=== PATIENT | female | born 1930 | race Caucasian/White ===

== ENCOUNTER 2017-07-01 19:32 | Observation (INO) | payer MEDICARE, BC ==
[2017-07-01] MEDS ORDERED: Sodium Chloride 0.9% 10 ML Syringe FLUSH PRN (20:00)
[2017-07-01] MEDS: Labetalol 20 MG/4 ML Syringe IVPUSH ONE ×3 (20:30→21:44)
[2017-07-01 21:00] LABS: CHLORIDE,CL 97 mmol/L (98-107); SODIUM,NA 136 mmol/L (136-145)
[2017-07-01] MEDS: cloNIDine 0.1 MG Tab PO ONE (21:13)
[2017-07-01] MEDS: LORazepam 1 MG Tab PO ONE (21:13)
[2017-07-01] MEDS ORDERED: Doxepin 25 MG Cap PO PRN (21:43)
[2017-07-01] MEDS ORDERED: HYDROmorphone 2 MG Tab PO PRN (21:43)
[2017-07-01] MEDS ORDERED: Potassium Chloride 10 MEQ Tab.ER PO SCH (21:45)
--- NOTE | 2017-07-01 22:23 | EDM.PDOC ---
ED HPI GENERAL MEDICAL PROBLEM - General Chief Complaint: General Stated Complaint: Not feeling well, Increased BP Time Seen by Provider: 07/01/17 19:40 Source of Information: Reports: Patient History Limitations: Reports: No Limitations - History of Present Illness INITIAL COMMENTS - FREE TEXT/NARRATIVE: This note can be used as the pts. admission H and P. Pt. presents to ER with complaints of "not feeling well". Pt. has been extremely hypertensive with BP of >180/90 for several days. Pt. states that she is not experiencing any headache or chest pain. No shortness of breath. Appetite is poor. Pt. states that she has not recently changed or adjusted her antihypertensive medications. She had been started on gabapentin in Apr. for her chronic back pain but only took this for 3 days because if made her feel "funny". States that she is not experiencing any shortness of breath. No weakness. No nausea or vomiting. In general, pt. is unable to relate what her complaint is other than "not feeling well". Location: Reports: Generalized Associated Symptoms: Reports: Malaise whole body Pain Score (Numeric/FACES): 5 - Related Data Allergies Allergy/AdvReac Type Severity Reaction Status Date / Time tetracycline [Tetracycline] Allergy Unknown Cannot Verified 07/01/17 20:00 Remember hydrocodone Allergy Rash Verified 07/01/17 20:00 Home Meds: Home Meds Aspirin [Halfprin] 81 mg PO DAILY 03/08/14 [History] Hydrochlorothiazide 12.5 mg PO DAILY 03/08/14 [History] Metoprolol Succinate [Toprol XL] 50 mg PO DAILY 03/08/14 [History] Potassium Chloride [Klor-Con 10] 10 meq PO QD #30 tab.er 03/19/14 [Rx] Doxepin [SINEquan] 25 mg PO Q6H PRN 07/01/17 [History] HYDROmorphone [Dilaudid] 2 mg PO BID PRN 07/01/17 [History] Levothyroxine Sodium [Synthroid] 25 mcg PO DAILY 07/01/17 [History] Naloxegol Oxalate [Movantik] 25 mg PO DAILY 07/01/17 [History] Sennosides/Docusate Sodium [Senna S Tablet] 1 tab PO DAILY 07/01/17 [History] Thyroid,Pork [[place] Thyroid] 30 mg PO DAILY 07/01/17 [History] busPIRone [Buspar] 5 mg PO BID 07/01/17 [History] traZODone HCl [Trazodone HCl] 12.5 mg PO BEDTIME 07/01/17 [History] Past Medical History HEENT History: Reports: Hard of Hearing, Impaired Vision Cardiovascular History: Reports: Hypertension, Stents, Other (See Below) Other Cardiovascular History: Stents placed "years ago" Gastrointestinal History: Reports: GERD Musculoskeletal History: Reports: Back Pain, Chronic Psychiatric History: Reports: Anxiety, Other (See Below) Other Psychiatric History: Insomnia Dermatologic History: Reports: Other (See Below) Other Dermatologic History: Various rashes on arms, upper chest (possibly from pain pills or stress). Possible yeast under breasts and near belly button ( using lotrimin cream for this) Social & Family History - Tobacco Use Smoking Status *Q: Never Smoker Years of Tobacco use: 60 - Caffeine Use Caffeine Use: Reports: Coffee - Alcohol Use Days Per Week of Alcohol Use: 0 - Recreational Drug Use Recreational Drug Use: No ED ROS GENERAL - Review of Systems Review Of Systems: See Below Constitutional: Reports: No Symptoms HEENT: Reports: No Symptoms Respiratory: Reports: No Symptoms. Denies: Shortness of Breath, Wheezing, Cough Cardiovascular: Reports: Blood Pressure Problem. Denies: Chest Pain, Dyspnea on Exertion, Edema, Lightheadedness, Palpitations Endocrine: Reports: No Symptoms GI/Abdominal: Reports: Decreased Appetite, Nausea. Denies: Black Stool, Bloody Stool, Constipation, Diarrhea, Difficulty Swallowing, Distension, Vomiting : Reports: No Symptoms, Dysuria, Frequency Musculoskeletal: Reports: No Symptoms Skin: Reports: No Symptoms Neurological: Denies: Confusion, Dizziness, Headache, Paresthesia Psychiatric: Reports: Anxiety Hematologic/Lymphatic: Reports: No Symptoms Immunologic: Reports: No Symptoms ED EXAM, GENERAL - Physical Exam Exam: See Below Exam Limited By: No Limitations General Appearance: Alert, WD/WN, No Apparent Distress Eye Exam: Bilateral Eye: EOMI, Normal Fundi, Normal Inspection, PERRL Ears: Normal External Exam, Normal Canal, Hearing Grossly Normal, Normal TMs Ear Exam: Bilateral Ear: Auricle Normal, Canal Normal, TM normal Nose: Normal Inspection, Normal Mucosa, No Blood Throat/Mouth: Normal Inspection, Normal Lips, Normal Teeth, Normal Gums, Normal Oropharynx, Normal Voice, No Airway Compromise Head: Atraumatic, Normocephalic Neck: Normal Inspection, Supple, Non-Tender, Full Range of Motion Respiratory/Chest: No Respiratory Distress, Lungs Clear, Normal Breath Sounds, No Accessory Muscle Use, Chest Non-Tender Cardiovascular: Systolic Murmur, Irregularly Irregular Peripheral Pulses: 3+: Radial (L), Radial (R) GI/Abdominal: Normal Bowel Sounds, Soft, Non-Tender, No Organomegaly, No Distention, No Abnormal Bruit, No Mass (Female) Exam: Deferred Rectal (Female) Exam: Deferred Back Exam: Normal Inspection, Full Range of Motion, NT Extremities: Normal Inspection, Normal Range of Motion, Non-Tender, Normal Capillary Refill, No Pedal Edema Neurological: Alert, Oriented, CN II-XII Intact, Normal Cognition, Normal Gait, Normal Reflexes, No Motor/Sensory Deficits Psychiatric: Normal Affect, Normal Mood Skin Exam: Warm, Dry, Intact, Normal Color, No Rash Lymphatic: No Adenopathy Course - Vital Signs Last Recorded V/S: Last Vital Signs Temp 36.4 C 07/01/17 19:35 Pulse 72 07/01/17 21:07 Resp 16 07/01/17 21:07 BP 217/114 H 07/01/17 21:13 Pulse Ox 95 07/01/17 19:35 - Orders/Labs/Meds Orders: Active Orders 24 hr Category Date Time Status EKG Documentation Completion [RC] STAT Care 07/01/17 20:00 Active Chest 2V [CR] Stat Exams 07/01/17 20:02 Taken Sodium Chloride 0.9% [Saline Flush] Med 07/01/17 20:00 Active 10 ml FLUSH ASDIRECTED PRN Peripheral IV Insertion Adult [OM.PC] Routine Oth 07/01/17 20:01 Ordered Medication Orders Aspirin (Halfprin) 81 mg PO DAILY [facility] Doxepin HCl (Sinequan) 25 mg PO Q6H PRN PRN Reason: Itching Hydrochlorothiazide (Hydrochlorothiazide) 12.5 mg PO DAILY [facility] Hydromorphone HCl (Dilaudid) 2 mg PO BID PRN PRN Reason: Pain (moderate 4-6) Levothyroxine Sodium (Levothyroxine) 25 mcg PO DAILY [facility] Metoprolol Succinate (Toprol Xl) 50 mg PO DAILY [facility] Non-Formulary Medication (Buspirone [Buspar]) 5 mg PO BID [facility] Non-Formulary Medication (Naloxegol Oxalate [Movantik]) 25 mg PO DAILY [facility] Non-Formulary Medication (Thyroid,Pork [[place] Thyroid]) 30 mg PO DAILY [facility] Potassium Chloride (Klor-Con 10) 10 meq PO QD [facility] Senna/Docusate Sodium (Senna Plus) 1 tab PO DAILY [facility] Sodium Chloride (Saline Flush) 10 ml FLUSH ASDIRECTED PRN PRN Reason: Keep Vein Open Trazodone HCl (Trazodone) 12.5 mg PO BEDTIME [facility] Labs: Laboratory Tests 07/01/17 07/01/17 07/01/17 Range/Units 20:25 20:25 20:25 WBC 7.2 (4.0-10.0) x10^3/uL RBC 5.02 (4.00-5.50) x10^6/uL Hgb 15.1 (12.0-16.0) g/dL Hct 45.9 (33.0-47.0) % MCV 91.4 (78.0-93.0) fL MCH 30.1 (26.0-32.0) pg MCHC 32.9 (32.0-36.0) g/dL RDW Coeff of [place] 14.0 (10.0-15.0) % Plt Count 181 (130-400) x10^3/uL Neut % (Auto) 58.0 (50.0-80.0) % Lymph % (Auto) 29.6 (25.0-50.0) % [place] % (Auto) 10.3 (2.0-11.0) % Eos % (Auto) 1.5 (0.0-4.0) % Baso % (Auto) 0.6 (0.2-1.2) % PT 10.5 (9.8-11.8) SEC INR 1.0 L (2.0-3.5) Sodium 136 (136-145) mmol/L Potassium 4.0 (3.5-5.1) mmol/L Chloride 97 L (98-107) mmol/L Carbon Dioxide 30 (21-32) mmol/L BUN 15 (7-18) mg/dL Creatinine 1.3 H (0.55-1.02) mg/dL Est Cr Clr Drug Dosing 31.26 mL/min Estimated GFR (MDRD) 39 Glucose 98 (74-106) mg/dL Calcium 9.3 (8.5-10.1) mg/dL Corrected Calcium 9.38 (8.5-10.1) mg/dL Total Bilirubin 0.7 (0.2-1.0) mg/dL AST 22 (15-37) U/L ALT 19 (14-59) U/L Alkaline Phosphatase 83 (46-116) U/L Troponin I < 0.017 (<=0.056) ng/mL C-Reactive Protein < 0.2 (<=0.9) mg/dL Total Protein 7.3 (6.4-8.2) g/dL Albumin 3.9 (3.4-5.0) g/dL Globulin 3.4 Albumin/Globulin Ratio 1.15 TSH, Ultra Sensitive 5.902 H (0.358-3.74) uIU/mL Meds: Medications Generic Name Dose Route Start Last Admin Trade Name Freq PRN Reason Stop Dose Admin Aspirin 81 mg 07/02/17 08:00 Halfprin PO DAILY [facility] Doxepin HCl 25 mg 07/01/17 21:43 Sinequan PO Q6H PRN Itching Hydrochlorothiazide 12.5 mg 07/02/17 08:00 Hydrochlorothiazide PO DAILY [facility] Hydromorphone HCl 2 mg 07/01/17 21:43 Dilaudid PO BID PRN Pain (moderate 4-6) Levothyroxine Sodium 25 mcg 07/02/17 08:00 Levothyroxine PO DAILY [facility] Metoprolol Succinate 50 mg 07/02/17 08:00 Toprol Xl PO DAILY [facility] Non-Formulary Medication 5 mg 07/02/17 08:00 Buspirone [Buspar] PO BID [facility] Non-Formulary Medication 25 mg 07/02/17 08:00 Naloxegol Oxalate [Movantik] PO DAILY [facility] Non-Formulary Medication 30 mg 07/02/17 08:00 Thyroid,Pork [[place] Thyroid] PO DAILY [facility] Potassium Chloride 10 meq 07/01/17 21:45 Klor-Con 10 PO QD [facility] Senna/Docusate Sodium 1 tab 07/02/17 08:00 Senna Plus PO DAILY [facility] Sodium Chloride 10 ml 07/01/17 20:00 Saline Flush FLUSH ASDIRECTED PRN Keep Vein Open Trazodone HCl 12.5 mg 07/02/17 20:00 Trazodone PO BEDTIME [facility] Discontinued Medications Generic Name Dose Route Start Last Admin Trade Name Lindy PRN Reason Stop Dose Admin Clonidine HCl 0.3 mg 07/01/17 21:03 07/01/17 21:13 Catapres PO 07/01/17 21:04 0.3 mg ONETIME ONE Administration Labetalol HCl 20 mg 07/01/17 20:07 07/01/17 21:44 Normodyne IVPUSH 07/01/17 20:08 Not Given NOW ONE Protocol Labetalol HCl 10 mg 07/01/17 20:08 07/01/17 20:30 Normodyne IVPUSH 07/01/17 20:09 10 mg NOW ONE Administration Protocol Labetalol HCl 10 mg 07/01/17 21:14 07/01/17 21:05 Normodyne IVPUSH 07/01/17 21:15 10 mg NOW ONE Administration Protocol Lorazepam 1 mg 07/01/17 21:02 07/01/17 21:13 Ativan PO 07/01/17 21:03 1 mg ONETIME ONE Administration Departure - Departure Time of Disposition: 22:00 Disposition: Refer to Observation Clinical Impression: Hypertensive crisis - Discharge Information - My Orders Last 24 Hours: My Active Orders 07/01/17 20:00 EKG Documentation Completion [RC] STAT Sodium Chloride 0.9% [Saline Flush] 10 ml FLUSH ASDIRECTED PRN 07/01/17 20:01 Peripheral IV Insertion Adult [OM.PC] Routine 07/01/17 20:02 Chest 2V [CR] Stat - Assessment/Plan Last 24 Hours: My Active Orders 07/01/17 20:00 EKG Documentation Completion [RC] STAT Sodium Chloride 0.9% [Saline Flush] 10 ml FLUSH ASDIRECTED PRN 07/01/17 20:01 Peripheral IV Insertion Adult [OM.PC] Routine 07/01/17 20:02 Chest 2V [CR] Stat
[2017-07-01] MEDS: hydrALAZINE 10 MG Tab PO SCH (23:17)
[2017-07-02] MEDS: Sodium Chloride 0.9% 1,000 ML IV ONE (02:29)
[2017-07-02] MEDS ORDERED: THYROID PORK 30 MG PO SCH (08:00)
[2017-07-02] MEDS ORDERED: NALOXEGOL OXALATE 25 MG PO SCH (08:00)
[2017-07-02] MEDS: Hydrochlorothiazide 25 MG Tab PO SCH (08:24)
[2017-07-02] MEDS: Levothyroxine 25 MCG Tab PO SCH (08:24)
[2017-07-02] MEDS: busPIRone 5 MG Tab PO SCH (08:25)
[2017-07-02] MEDS: Aspirin 81 MG Tab.EC PO SCH (08:25)
[2017-07-02 08:26] VITALS: BP 117/66
[2017-07-02] MEDS: Metoprolol Succinate 50 MG Tab.ER PO SCH (08:26)
--- NOTE | 2017-07-02 08:51 | PCM.DCSUM1 ---
Discharge Summary - Hospital Course Free Text/Narrative:: Pt. is feeling better this AM. Her blood pressure was elevated at >200/100 despite receiving IV labetolol. Pt. was subsequently given 0.3mg of clonidine and her BP decreased to normal range, at one point dropping to around 80/50. She was given a liter of NS. This morning, pt. blood pressure is in the normal range and she is feeling much better. Pt. started feeling better she was able to relax for the evening. At this time, she feels she is stable to go home. - Discharge Data Discharge Date: 07/02/17 Discharge Disposition: Home, Self-Care 01 Condition: Good - Discharge Diagnosis/Problem(s) (1) Anxiety SNOMED Code(s): 42537680 ICD Code: F41.9 - ANXIETY DISORDER, UNSPECIFIED Status: Acute Current Visit: Yes (2) Hypertensive crisis SNOMED Code(s): 673401392 ICD Code: I16.9 - HYPERTENSIVE CRISIS, UNSPECIFIED Status: Acute Current Visit: Yes - Patient Instructions Diet: Regular Diet as Tolerated - Discharge Plan Home Medications: Home Meds Aspirin [Halfprin] 81 mg PO DAILY 03/08/14 [History] Hydrochlorothiazide 12.5 mg PO DAILY 03/08/14 [History] Metoprolol Succinate [Toprol XL] 50 mg PO DAILY 03/08/14 [History] Potassium Chloride [Klor-Con 10] 10 meq PO QD #30 tab.er 03/19/14 [Rx] Doxepin [SINEquan] 25 mg PO Q6H PRN 07/01/17 [History] HYDROmorphone [Dilaudid] 2 mg PO BID PRN 07/01/17 [History] Levothyroxine Sodium [Synthroid] 25 mcg PO DAILY 07/01/17 [History] Naloxegol Oxalate [Movantik] 25 mg PO DAILY 07/01/17 [History] Sennosides/Docusate Sodium [Senna S Tablet] 1 tab PO DAILY 07/01/17 [History] Thyroid,Pork [[place] Thyroid] 30 mg PO DAILY 07/01/17 [History] busPIRone [Buspar] 5 mg PO BID 07/01/17 [History] traZODone HCl [Trazodone HCl] 12.5 mg PO BEDTIME 07/01/17 [History] Forms: ED Department Discharge Referrals: Loli Oliveros DO [Primary Care Provider] - - Patient Data Vitals - Most Recent: Last Vital Signs Temp 37.1 C 07/02/17 08:00 Pulse 70 07/02/17 08:26 Resp 18 07/02/17 08:00 BP 117/66 07/02/17 08:26 Pulse Ox 97 07/02/17 08:00 Weight - Most Recent: 73.482 kg I&O - Last 24 hours: Intake & Output 07/01/17 07/02/17 07/02/17 22:59 06:59 14:59 Intake Total 240 1100 Output Total 200 250 Balance 40 850 Lab Results - Last 24 hrs: Laboratory Results - last 24 hr 07/02/17 Range/Units 06:25 Troponin I < 0.017 (<=0.056) ng/mL Med Orders - Current: Current Medications Aspirin (Halfprin) 81 mg PO DAILY [facility] Last Admin: 07/02/17 08:25 Dose: 81 mg Buspirone HCl (Buspar) 5 mg PO BID [facility] Last Admin: 07/02/17 08:25 Dose: 5 mg Doxepin HCl (Sinequan) 25 mg PO Q6H PRN PRN Reason: Itching Hydrochlorothiazide (Hydrochlorothiazide) 12.5 mg PO DAILY [facility] Last Admin: 07/02/17 08:24 Dose: 12.5 mg Hydromorphone HCl (Dilaudid) 2 mg PO BID PRN PRN Reason: Pain (moderate 4-6) Levothyroxine Sodium (Levothyroxine) 25 mcg PO DAILY [facility] Last Admin: 07/02/17 08:24 Dose: 25 mcg Metoprolol Succinate (Toprol Xl) 50 mg PO DAILY [facility] Last Admin: 07/02/17 08:26 Dose: 50 mg Non-Formulary Medication (Naloxegol Oxalate [Movantik]) 25 mg PO DAILY [facility] Non-Formulary Medication (Thyroid,Pork [[place] Thyroid]) 30 mg PO DAILY [facility] Potassium Chloride (Klor-Con 10) 10 meq PO QD [facility] Senna/Docusate Sodium (Senna Plus) 1 tab PO DAILY [facility] Last Admin: 07/02/17 08:26 Dose: 1 tab Sodium Chloride (Saline Flush) 10 ml FLUSH ASDIRECTED PRN PRN Reason: Keep Vein Open Trazodone HCl (Trazodone) 12.5 mg PO BEDTIME [facility] Discontinued Medications Clonidine HCl (Catapres) 0.3 mg PO ONETIME ONE Stop: 07/01/17 21:04 Last Admin: 07/01/17 21:13 Dose: 0.3 mg Hydralazine HCl (Apresoline) 10 mg PO Q4H [facility] Last Admin: 07/01/17 23:17 Dose: Not Given Sodium Chloride (Normal Saline) 1,000 mls @ 250 mls/hr IV .BOLUS ONE Stop: 07/02/17 06:14 Last Admin: 07/02/17 02:29 Dose: 250 mls/hr Labetalol HCl (Normodyne) 20 mg IVPUSH NOW ONE PRN Reason: Protocol Stop: 07/01/17 20:08 Last Admin: 07/01/17 21:44 Dose: Not Given Labetalol HCl (Normodyne) 10 mg IVPUSH NOW ONE PRN Reason: Protocol Stop: 07/01/17 20:09 Last Admin: 07/01/17 20:30 Dose: 10 mg Labetalol HCl (Normodyne) 10 mg IVPUSH NOW ONE PRN Reason: Protocol Stop: 07/01/17 21:15 Last Admin: 07/01/17 21:05 Dose: 10 mg Lorazepam (Ativan) 1 mg PO ONETIME ONE Stop: 07/01/17 21:03 Last Admin: 07/01/17 21:13 Dose: 1 mg *Q Meaningful Use (DIS) - VTE *Q VTE Criteria *Q: - Stroke *Q Stroke Criteria *Q: - AMI *Q AMI Criteria *Q:
[2017-07-02] MEDS ORDERED: traZODone 50 MG Tab PO SCH (20:00)
== END 2017-07-02 09:40 | disposition other institution (70) ==
LOC: VM.ED 19:32 → VM.MS 21:06
PROVIDERS: ADMIT Physician Assistant; ATTEND Physician Assistant
DX: I16.9 Hypertensive crisis, unspecified (principal); I10 Essential (primary) hypertension; F41.9 Anxiety disorder, unspecified; K21.9 Gastro-esophageal reflux disease without esophagitis; G47.00 Insomnia, unspecified; Z79.82 Long term (current) use of aspirin; Z79.899 Other long term (current) drug therapy; Z88.8 Allergy status to other drugs, medicaments and biological substances; Z88.5 Allergy status to narcotic agent
CPT/HCPCS: 36415; 71046; 80053; 81001; 84443; 84484; 85025; 85610; 86140; 93005; 94760; 96374; 96376; 99285; A9270-GY; J3490; J7030

== ENCOUNTER 2017-12-22 11:41 | Emergency (ER) | payer MEDICARE, BC ==
--- NOTE | 2017-12-22 12:07 | EDM.PDOC ---
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 below) (None) - Related Data Allergies Allergy/AdvReac Type Severity Reaction Status Date / Time tetracycline [Tetracycline] Allergy Unknown Cannot Verified 12/22/17 12:00 Remember hydrocodone Allergy Rash Verified 12/22/17 12:00 Home Meds: Home Meds Aspirin [Halfprin] 81 mg PO DAILY 03/08/14 [History] Hydrochlorothiazide 12.5 mg PO DAILY 03/08/14 [History] Metoprolol Succinate [Toprol XL] 50 mg PO DAILY 03/08/14 [History] Potassium Chloride [Klor-Con 10] 10 meq PO QD #30 tab.er 03/19/14 [Rx] Doxepin [SINEquan] 25 mg PO Q6H PRN 07/01/17 [History] HYDROmorphone [Dilaudid] 2 mg PO BID PRN 07/01/17 [History] Levothyroxine Sodium [Synthroid] 25 mcg PO DAILY 07/01/17 [History] Naloxegol Oxalate [Movantik] 25 mg PO DAILY 07/01/17 [History] Sennosides/Docusate Sodium [Senna-S Tablet] 1 tab PO DAILY 07/01/17 [History] Thyroid,Pork [[place] Thyroid] 30 mg PO DAILY 07/01/17 [History] busPIRone [Buspar] 5 mg PO BID 07/01/17 [History] traZODone HCl [Trazodone HCl] 12.5 mg PO BEDTIME 07/01/17 [History] Past Medical History HEENT History: Reports: Hard of Hearing, Impaired Vision Cardiovascular History: Reports: Hypertension, Stents, Other (See Below) Other Cardiovascular History: Stents placed "years ago" Gastrointestinal History: Reports: GERD Musculoskeletal History: Reports: Back Pain, Chronic Psychiatric History: Reports: Anxiety, Other (See Below) Other Psychiatric History: Insomnia Dermatologic History: Reports: Other (See Below) Other Dermatologic History: Various rashes on arms, upper chest (possibly from pain pills or stress). Possible yeast under breasts and near belly button ( using lotrimin cream for this) - Past Surgical History GI Surgical History: Reports: None Social & Family History - Family History Family Medical History: Noncontributory - Caffeine Use Caffeine Use: Reports: Coffee Other Caffeine Use: 1-2 cups coffee daily ED ROS GENERAL - Review of Systems Review Of Systems: See Below Constitutional: Reports: No Symptoms. Denies: Fever, Chills, Weakness Respiratory: Reports: Shortness of Breath (chronic, not new). Denies: Cough Cardiovascular: Reports: Chest Pain. Denies: Blood Pressure Problem, Lightheadedness, Palpitations GI/Abdominal: Reports: Abdominal Pain. Denies: Nausea, Vomiting Skin: Reports: No Symptoms Neurological: Denies: Dizziness, Headache, Numbness, Paresthesia, Tingling ED EXAM, GENERAL - Physical Exam Exam: See Below Exam Limited By: No Limitations General Appearance: Alert, No Apparent Distress Respiratory/Chest: No Respiratory Distress, Lungs Clear, Decreased Breath Sounds Cardiovascular: Normal Peripheral Pulses, Regular Rate, Rhythm Peripheral Pulses: 2+: Radial (L), Radial (R) GI/Abdominal: Normal Bowel Sounds, Soft, Non-Tender Extremities: Normal Inspection Neurological: Alert, Oriented Skin Exam: Warm, Dry, Intact, Normal Color EKG INTERPRETATION EKG Date: 12/22/17 Time: 11:48 Rhythm: A-Fib (chronic) Rate (Beats/Min): 67 [place]: LAD-Left [place] Deviation P-Wave: Absent QRS: Normal ST-T: Normal QT: Normal NE/PQ Interval: Absent Comparison: No Change EKG Interpretation Comments: 1. Atrial Fibrillation 2. Marked left access deviation Course - Vital Signs Last Recorded V/S: Last Vital Signs Temp 37.3 C 12/22/17 11:41 Pulse 67 12/22/17 11:41 Resp 18 12/22/17 11:41 BP 182/91 H 12/22/17 11:41 Pulse Ox 95 12/22/17 11:41 - Orders/Labs/Meds Orders: Active Orders 24 hr Category Date Time Status EKG 12 Lead [EKG Documentation Completion] [RC] STAT Care 12/22/17 11:55 Active Chest 2V [CR] Stat Exams 12/22/17 11:55 Taken Chest PE [Ang Chest] [CT] Stat Exams 12/22/17 12:49 Taken Sodium Chloride 0.9% [Saline Flush] Med 12/22/17 12:52 Active 10 ml FLUSH ASDIRECTED PRN Peripheral IV Insertion Adult [OM.PC] Routine Oth 12/22/17 12:52 Ordered Medication Orders Sodium Chloride (Saline Flush) 10 ml FLUSH ASDIRECTED PRN PRN Reason: Keep Vein Open Labs: Laboratory Tests 12/22/17 12/22/17 12/22/17 Range/Units 12:12 12:12 12:12 WBC 6.7 (4.0-10.0) x10^3/uL RBC 5.00 (4.00-5.50) x10^6/uL Hgb 15.4 (12.0-16.0) g/dL Hct 45.8 (33.0-47.0) % MCV 91.6 (78.0-93.0) fL MCH 30.8 (26.0-32.0) pg MCHC 33.6 (32.0-36.0) g/dL RDW Coeff of [place] 13.7 (10.0-15.0) % Plt Count 185 (130-400) x10^3/uL Neut % (Auto) 70.1 (50.0-80.0) % Lymph % (Auto) 17.1 L (25.0-50.0) % [place] % (Auto) 10.5 (2.0-11.0) % Eos % (Auto) 1.7 (0.0-4.0) % Baso % (Auto) 0.6 (0.2-1.2) % D-Dimer, Quantitative 0.98 H (<=0.58) mg/LFEU Sodium 132 L (136-145) mmol/L Potassium 3.8 (3.5-5.1) mmol/L Chloride 97 L (98-107) mmol/L Carbon Dioxide 32 (21-32) mmol/L Anion Gap 6.8 L (10-20) mmol/L BUN 24 H (7-18) mg/dL Creatinine 1.2 H (0.55-1.02) mg/dL Est Cr Clr Drug Dosing 33.87 mL/min Estimated GFR (MDRD) 42 Glucose 168 H (74-106) mg/dL Calcium 9.4 (8.5-10.1) mg/dL Creatine Kinase 30 (26-192) U/L Troponin I < 0.017 (<=0.056) ng/mL Amylase 32 (25-115) U/L Lipase 64 L (73-393) U/L Meds: Medications Generic Name Dose Route Start Last Admin Trade Name Freq PRN Reason Stop Dose Admin Sodium Chloride 10 ml 12/22/17 12:52 Saline Flush FLUSH ASDIRECTED PRN Keep Vein Open Discontinued Medications Generic Name Dose Route Start Last Admin Trade Name Freq PRN Reason Stop Dose Admin Iopamidol 100 ml 12/22/17 13:02 12/22/17 13:24 Isovue-300 (61%) IVPUSH 12/22/17 13:03 100 ml ONETIME ONE Administration - Radiology Interpretation Free Text/Narrative:: CTA Chest: Negative for PE See scanned document in EMR for details CT Results Date: 12/22/17 CT Results Time: 13:57 Departure - Departure Time of Disposition: 14:24 Disposition: Home, Self-Care 01 Reason for Transfer *Q: Other Condition: Good Clinical Impression: Atypical chest pain Instructions: Nonspecific Chest Pain Referrals: Loli Oliveros DO [Primary Care Provider] - Forms: ED Department Discharge Additional Instructions: 1. Stay well hydrated and rest 2. Follow up with Dr. Oliveros for recheck - Problem List Review Problem List Initiated/Reviewed/Updated: Yes - My Orders Last 24 Hours: My Active Orders 12/22/17 11:55 EKG 12 Lead [EKG Documentation Completion] [RC] STAT Chest 2V [CR] Stat 12/22/17 12:49 Chest PE [Ang Chest] [CT] Stat 12/22/17 12:52 Sodium Chloride 0.9% [Saline Flush] 10 ml FLUSH ASDIRECTED PRN Peripheral IV Insertion Adult [OM.PC] Routine - Assessment/Plan Last 24 Hours: My Active Orders 12/22/17 11:55 EKG 12 Lead [EKG Documentation Completion] [RC] STAT Chest 2V [CR] Stat 12/22/17 12:49 Chest PE [Ang Chest] [CT] Stat 12/22/17 12:52 Sodium Chloride 0.9% [Saline Flush] 10 ml FLUSH ASDIRECTED PRN Peripheral IV Insertion Adult [OM.PC] Routine Assessment:: Atypical chest pain Plan: Labs, Xray, and CT discussed with patient. No acute emergency found. Recommend followup with PCP for further eval/treatment. Patient agrees with POC.
[2017-12-22 12:14] VITALS: BP 182/91
[2017-12-22 12:43] LABS: CHLORIDE,CL 97 mmol/L (98-107); SODIUM,NA 132 mmol/L (136-145)
[2017-12-22 12:44] LABS: ANION GAP 6.8 mmol/L (10-20)
[2017-12-22] MEDS ORDERED: Sodium Chloride 0.9% 10 ML Syringe FLUSH PRN (12:52)
[2017-12-22] MEDS: Iopamidol 612 MG/ML 100 ML Bottle IVPUSH ONE (13:24)
== END 2017-12-22 14:35 | disposition home or self-care (01) ==
LOC: VM.ED 11:41
DX: R07.89 Other chest pain (principal); I10 Essential (primary) hypertension; Z95.5 Presence of coronary angioplasty implant and graft; Z79.899 Other long term (current) drug therapy; Z88.8 Allergy status to other drugs, medicaments and biological substances; Z79.82 Long term (current) use of aspirin
CPT/HCPCS: 36415; 71046; 71275; 80048; 82150; 82550; 83690; 84484; 85025; 85379; 93005; 93010; 99284; 99285; Q9967

== ENCOUNTER 2017-12-30 13:11 | Emergency (ER) | payer MEDICARE, BC ==
[2017-12-30] MEDS ORDERED: Sodium Chloride 0.9% 10 ML Syringe FLUSH PRN (13:14)
--- NOTE | 2017-12-30 13:37 | EDM.PDOC ---
ED HPI GENERAL MEDICAL PROBLEM - General Chief Complaint: Neuro Symptoms/Deficits Stated Complaint: CODE GREEN Time Seen by Provider: 12/30/17 13:11 Source of Information: Reports: Patient History Limitations: Reports: No Limitations - History of Present Illness INITIAL COMMENTS - FREE TEXT/NARRATIVE: Pt. presents to ER with complaints of L sided weakness, left lower extremity weakness, L sided facial droop, confusion, and vertigo. States that she "felt dizzy" and was having issues memory and confusion to staff at at approx. 1030. She states that she was feeling off when she woke at 9 AM. No other neuro symptoms. At 1215, she was noted to have L sided weakness and facial droop (L leg was dragging) as noted by family and assisted living staff. There was a definite change in her neuro status between 10:30 and 12:15. Onset: Today Onset Date: 12/30/17 Onset Time: 12:20 Associated Symptoms: Reports: Weakness - Related Data Allergies Allergy/AdvReac Type Severity Reaction Status Date / Time tetracycline [Tetracycline] Allergy Unknown Cannot Verified 12/22/17 12:00 Remember hydrocodone Allergy Rash Verified 12/22/17 12:00 Home Meds: Home Meds Aspirin [Halfprin] 81 mg PO DAILY 03/08/14 [History] Hydrochlorothiazide 12.5 mg PO DAILY 03/08/14 [History] Metoprolol Succinate [Toprol XL] 50 mg PO DAILY 03/08/14 [History] Potassium Chloride [Klor-Con 10] 10 meq PO QD #30 tab.er 03/19/14 [Rx] Doxepin [SINEquan] 25 mg PO Q6H PRN 07/01/17 [History] HYDROmorphone [Dilaudid] 2 mg PO BID PRN 07/01/17 [History] Levothyroxine Sodium [Synthroid] 25 mcg PO DAILY 07/01/17 [History] Naloxegol Oxalate [Movantik] 25 mg PO DAILY 07/01/17 [History] Sennosides/Docusate Sodium [Senna-S Tablet] 1 tab PO DAILY 07/01/17 [History] Thyroid,Pork [[place] Thyroid] 30 mg PO DAILY 07/01/17 [History] busPIRone [Buspar] 5 mg PO BID 07/01/17 [History] traZODone HCl [Trazodone HCl] 12.5 mg PO BEDTIME 07/01/17 [History] Past Medical History HEENT History: Reports: Hard of Hearing, Impaired Vision Other HEENT History: pseudophakia. YAG capsulotomy Cardiovascular History: Reports: Hypertension, Stents, Other (See Below) Other Cardiovascular History: Stents placed "years ago" Respiratory History: Reports: COPD Gastrointestinal History: Reports: GERD Other Gastrointestinal History: dyspepsia Musculoskeletal History: Reports: Back Pain, Chronic Other Musculoskeletal History: collapsed vertebra Psychiatric History: Reports: Anxiety, Other (See Below) Other Psychiatric History: Insomnia Endocrine/Metabolic History: Reports: Hypothyroidism Hematologic History: Reports: Other (See Below) Other Hematologic History: hypokalemia Dermatologic History: Reports: Other (See Below) Other Dermatologic History: Various rashes on arms, upper chest (possibly from pain pills or stress). Possible yeast under breasts and near belly button ( using lotrimin cream for this) - Past Surgical History GI Surgical History: Reports: None Social & Family History - Family History Family Medical History: Noncontributory - Caffeine Use Caffeine Use: Reports: Coffee Other Caffeine Use: 1-2 cups coffee daily ED ROS GENERAL - Review of Systems Review Of Systems: See Below Constitutional: Reports: Weakness HEENT: Reports: No Symptoms Respiratory: Reports: No Symptoms Cardiovascular: Reports: No Symptoms Endocrine: Reports: No Symptoms GI/Abdominal: Reports: No Symptoms : Reports: No Symptoms Musculoskeletal: Reports: No Symptoms Skin: Reports: No Symptoms Neurological: Reports: Confusion, Dizziness, Gait Disturbance, Other (L sided facial droop) Psychiatric: Reports: No Symptoms Hematologic/Lymphatic: Reports: No Symptoms Immunologic: Reports: No Symptoms ED EXAM, GENERAL - Physical Exam Exam: See Below Exam Limited By: No Limitations General Appearance: Alert, WD/WN, No Apparent Distress Eye Exam: Bilateral Eye: EOMI, Normal Fundi, Normal Inspection, PERRL Nose: Normal Inspection, Normal Mucosa, No Blood Throat/Mouth: Normal Inspection, Normal Lips, Normal Teeth, Normal Gums, Normal Oropharynx, Normal Voice, No Airway Compromise Head: Atraumatic, Normocephalic Neck: Normal Inspection, Supple, Non-Tender, Full Range of Motion Respiratory/Chest: No Respiratory Distress, Lungs Clear, Normal Breath Sounds, No Accessory Muscle Use, Chest Non-Tender Cardiovascular: Normal Peripheral Pulses, Regular Rate, Rhythm, No Edema, No Gallop, No JVD, No Murmur, No Rub Peripheral Pulses: 4+: Radial (R) GI/Abdominal: Normal Bowel Sounds, Soft, Non-Tender, No Organomegaly, No Distention, No Abnormal Bruit, No Mass (Female) Exam: Deferred Rectal (Female) Exam: Deferred Back Exam: Normal Inspection, Full Range of Motion, NT Extremities: Normal Inspection, Normal Range of Motion, Non-Tender, Normal Capillary Refill, No Pedal Edema Neurological: Alert, Oriented, CN II-XII Intact, Normal Cognition, Normal Gait, Normal Reflexes, No Motor/Sensory Deficits, Other (symptoms have resolved) Psychiatric: Normal Affect, Normal Mood Skin Exam: Warm, Dry, Intact, Normal Color, No Rash Course - Orders/Labs/Meds Orders: Active Orders 24 hr Category Date Time Status EKG Documentation Completion [RC] STAT Care 12/30/17 13:14 Ordered Head wo Cont [CT] Stat Exams 12/30/17 13:13 Ordered CBC WITH AUTO DIFF [HEME] Stat Lab 12/30/17 13:14 Ordered COMPREHENSIVE METABOLIC PN,CMP [CHEM] Stat Lab 12/30/17 13:14 Ordered CRP [C-REACTIVE PROTEIN] [CHEM] Stat Lab 12/30/17 13:15 Ordered INR,PT,PROTHROMBIN TIME [COAG] Stat Lab 12/30/17 13:14 Ordered MAGNESIUM [CHEM] Stat Lab 12/30/17 13:15 Ordered PHOSPHORUS [CHEM] Stat Lab 12/30/17 13:15 Ordered TROPONIN I [CHEM] Stat Lab 12/30/17 13:14 Ordered TSH ULTRASENSITIVE [CHEM] Stat Lab 12/30/17 13:14 Ordered Sodium Chloride 0.9% [Saline Flush] Med 12/30/17 13:14 Ordered 10 ml FLUSH ASDIRECTED PRN Peripheral IV Insertion Adult [OM.PC] Routine Oth 12/30/17 13:15 Ordered Medication Orders Sodium Chloride (Saline Flush) 10 ml FLUSH ASDIRECTED PRN PRN Reason: Keep Vein Open Meds: Medications Generic Name Dose Route Start Last Admin Trade Name Freq PRN Reason Stop Dose Admin Sodium Chloride 10 ml 12/30/17 13:14 Saline Flush FLUSH ASDIRECTED PRN Keep Vein Open - Radiology Interpretation Free Text/Narrative:: CT without contrast showed moderate to severe small vessel disease. CTA head and neck revealed 50% to 69% narrowing of the proximal cervical internal carotids bilaterally and heavy atheromatous calcific changes at carotid bifurcation bilaterally. Departure - Departure Time of Disposition: 13:43 Disposition: DC/Tfer to Acute Hospital 02 Condition: Good Clinical Impression: TIA (transient ischemic attack) - Discharge Information Forms: ED Department Discharge - My Orders Last 24 Hours: My Active Orders 12/30/17 13:13 Head wo Cont [CT] Stat 12/30/17 13:14 EKG Documentation Completion [RC] STAT CBC WITH AUTO DIFF [HEME] Stat COMPREHENSIVE METABOLIC PN,CMP [CHEM] Stat INR,PT,PROTHROMBIN TIME [COAG] Stat TROPONIN I [CHEM] Stat TSH ULTRASENSITIVE [CHEM] Stat Sodium Chloride 0.9% [Saline Flush] 10 ml FLUSH ASDIRECTED PRN 12/30/17 13:15 CRP [C-REACTIVE PROTEIN] [CHEM] Stat MAGNESIUM [CHEM] Stat PHOSPHORUS [CHEM] Stat Peripheral IV Insertion Adult [OM.PC] Routine - Assessment/Plan Last 24 Hours: My Active Orders 12/30/17 13:13 Head wo Cont [CT] Stat 12/30/17 13:14 EKG Documentation Completion [RC] STAT CBC WITH AUTO DIFF [HEME] Stat COMPREHENSIVE METABOLIC PN,CMP [CHEM] Stat INR,PT,PROTHROMBIN TIME [COAG] Stat TROPONIN I [CHEM] Stat TSH ULTRASENSITIVE [CHEM] Stat Sodium Chloride 0.9% [Saline Flush] 10 ml FLUSH ASDIRECTED PRN 12/30/17 13:15 CRP [C-REACTIVE PROTEIN] [CHEM] Stat MAGNESIUM [CHEM] Stat PHOSPHORUS [CHEM] Stat Peripheral IV Insertion Adult [OM.PC] Routine
[2017-12-30] MEDS ORDERED: Iopamidol 612 MG/ML 100 ML Bottle IVPUSH ONE (13:59)
[2017-12-30 14:01] LABS: CHLORIDE,CL 98 mmol/L (98-107); SODIUM,NA 133 mmol/L (136-145)
[2017-12-30 14:03] LABS: ANION GAP 11.2 mmol/L (10-20)
[2017-12-30] MEDS ORDERED: Sodium Chloride 0.9% 1,000 ML IV ONE (15:43)
== END 2017-12-30 16:15 | disposition short-term general hospital (02) ==
LOC: VM.ED 13:11
DX: G45.9 Transient cerebral ischemic attack, unspecified (principal); I10 Essential (primary) hypertension; E03.9 Hypothyroidism, unspecified; Z95.5 Presence of coronary angioplasty implant and graft; Z79.82 Long term (current) use of aspirin; Z79.899 Other long term (current) drug therapy; Z88.5 Allergy status to narcotic agent
CPT/HCPCS: 36415; 70450; 70496; 70498; 80053; 83735; 84100; 84443; 84484; 85025; 85610; 86140; 93005; 99285; Q9967

== ENCOUNTER 2018-01-05 20:13 | Emergency (ER) | payer MEDICARE, BC ==
[2018-01-05 21:12] LABS: CHLORIDE,CL 94 mmol/L (98-107); SODIUM,NA 132 mmol/L (136-145)
[2018-01-05 21:18] LABS: ANION GAP 7.4 mmol/L (10-20)
[2018-01-05 22:34] VITALS: BP 141/79
--- NOTE | 2018-01-06 06:20 | EDM.PDOC ---
ED HPI GENERAL MEDICAL PROBLEM - General Chief Complaint: Abdominal Pain Stated Complaint: abdominal pain Time Seen by Provider: 01/05/18 20:20 Source of Information: Reports: Patient History Limitations: Reports: No Limitations - History of Present Illness INITIAL COMMENTS - FREE TEXT/NARRATIVE: Pt. complains of acute onset abdominal pain whilst using the toilet tonight. She recently was transferred to [facility] with stroke like/TIA symptoms but was discharged. She was started on a statin for hyperlipidemia. Pt. states that she was very active yesterday, rode to [place] with family, went out to eat, etc. States that discomfort is diffuse and started right before retiring to bed. Denies any nausea, vomiting, or diarrhea. She did summon EMS, and states that the discomfort is almost completely resolved be the time she arrived to ER. Onset: Today, Sudden Duration: Colic, Intermittent Location: Reports: Abdomen Quality: Reports: Dull Severity: Mild Abdomen Pain Score (Numeric/FACES): 8 - Related Data Allergies Allergy/AdvReac Type Severity Reaction Status Date / Time tetracycline [Tetracycline] Allergy Unknown Cannot Verified 12/22/17 12:00 Remember duloxetine [From Cymbalta] Allergy Confusion Verified 01/05/18 20:27 gabapentin [From Neurontin] Allergy Other Verified 01/05/18 20:27 hydrocodone Allergy Rash Verified 12/22/17 12:00 tramadol Allergy Rash Verified 01/05/18 20:27 Home Meds: Home Meds Aspirin [Halfprin] 81 mg PO DAILY 03/08/14 [History] Hydrochlorothiazide 25 mg PO DAILY 03/08/14 [History] Metoprolol Succinate [Toprol XL] 100 mg PO DAILY 03/08/14 [History] Potassium Chloride [Klor-Con 10] 10 meq PO QD #30 tab.er 03/19/14 [Rx] Doxepin [SINEquan] 25 mg PO Q6H PRN 07/01/17 [History] HYDROmorphone [Dilaudid] 2 mg PO BID PRN 07/01/17 [History] Levothyroxine Sodium [Synthroid] 25 mcg PO DAILY 07/01/17 [History] Naloxegol Oxalate [Movantik] 25 mg PO DAILY 07/01/17 [History] Sennosides/Docusate Sodium [Senna-S Tablet] 1 tab PO BID 07/01/17 [History] Thyroid,Pork [[place] Thyroid] 30 mg PO DAILY 07/01/17 [History] busPIRone [Buspar] 2.5 mg PO BID 07/01/17 [History] traZODone HCl [Trazodone HCl] 12.5 mg PO BEDTIME 07/01/17 [History] Albuterol [Proventil] 2.5 mg .XX ASDIRECTED PRN 01/05/18 [History] Apixaban [Eliquis] 5 mg PO BID 01/05/18 [History] Ciprofloxacin/Dexamethasone [Ciprodex Otic Susp] 1 drop OT BID 01/05/18 [History ] LORazepam 0.5 mg PO BID PRN 01/05/18 [History] amLODIPine Besylate [Amlodipine Besylate] 10 mg PO DAILY 01/05/18 [History] atorvaSTATin [Lipitor] 40 mg PO BEDTIME 01/05/18 [History] diphenhydrAMINE [Benadryl] 25 mg PO ASDIRECTED 01/05/18 [History] Past Medical History HEENT History: Reports: Hard of Hearing, Impaired Vision Other HEENT History: pseudophakia. YAG capsulotomy Cardiovascular History: Reports: Hypertension, Stents, Other (See Below) Other Cardiovascular History: Stents placed "years ago" Respiratory History: Reports: COPD Gastrointestinal History: Reports: GERD Other Gastrointestinal History: dyspepsia Musculoskeletal History: Reports: Back Pain, Chronic Other Musculoskeletal History: collapsed vertebra Psychiatric History: Reports: Anxiety, Other (See Below) Other Psychiatric History: Insomnia Endocrine/Metabolic History: Reports: Hypothyroidism Hematologic History: Reports: Other (See Below) Other Hematologic History: hypokalemia Dermatologic History: Reports: Other (See Below) Other Dermatologic History: Various rashes on arms, upper chest (possibly from pain pills or stress). Possible yeast under breasts and near belly button ( using lotrimin cream for this) - Past Surgical History GI Surgical History: Reports: None Social & Family History - Family History Family Medical History: Noncontributory - Tobacco Use Smoking Status *Q: Unknown Ever Smoked - Caffeine Use Caffeine Use: Reports: Coffee Other Caffeine Use: 1-2 cups coffee daily ED ROS GENERAL - Review of Systems Review Of Systems: See Below Constitutional: Reports: No Symptoms HEENT: Reports: No Symptoms Respiratory: Reports: No Symptoms Cardiovascular: Reports: No Symptoms Endocrine: Reports: No Symptoms GI/Abdominal: Reports: Abdominal Pain, Constipation, Distension. Denies: Black Stool, Bloody Stool, Diarrhea, Hematemesis, Hematochezia, Melena : Reports: No Symptoms Musculoskeletal: Reports: No Symptoms Skin: Reports: No Symptoms Neurological: Reports: No Symptoms Psychiatric: Reports: No Symptoms Hematologic/Lymphatic: Reports: No Symptoms Immunologic: Reports: No Symptoms ED EXAM, GENERAL - Physical Exam Exam: See Below Exam Limited By: No Limitations General Appearance: Alert, WD/WN, No Apparent Distress Eye Exam: Bilateral Eye: EOMI, Normal Fundi, Normal Inspection, PERRL Nose: Normal Inspection, Normal Mucosa, No Blood Throat/Mouth: Normal Inspection, Normal Lips, Normal Teeth, Normal Gums, Normal Oropharynx, Normal Voice, No Airway Compromise Head: Atraumatic, Normocephalic Neck: Normal Inspection, Supple, Non-Tender, Full Range of Motion Respiratory/Chest: No Respiratory Distress, Lungs Clear, Normal Breath Sounds, No Accessory Muscle Use, Chest Non-Tender Cardiovascular: Normal Peripheral Pulses, Regular Rate, Rhythm, No Edema, No Gallop, No JVD, No Murmur, No Rub GI/Abdominal: Normal Bowel Sounds, Soft, No Organomegaly, Tender, Other (mild distention. Flatus noted. Bowel sounds are normoactive.) (Female) Exam: Deferred Rectal (Female) Exam: Deferred Back Exam: Normal Inspection, Full Range of Motion, NT Extremities: Normal Inspection, Normal Range of Motion, Non-Tender, Normal Capillary Refill, No Pedal Edema Neurological: Alert, Oriented, CN II-XII Intact, Normal Cognition, Normal Gait, Normal Reflexes, No Motor/Sensory Deficits Psychiatric: Normal Affect, Normal Mood Skin Exam: Warm, Dry, Intact, Normal Color, No Rash Lymphatic: No Adenopathy EKG INTERPRETATION Rhythm: NSR Comparison: No Change Course - Vital Signs Last Recorded V/S: Last Vital Signs Temp 36.0 C 01/05/18 20:17 Pulse 67 01/05/18 22:20 Resp 18 01/05/18 22:20 BP 141/79 H 01/05/18 22:20 Pulse Ox 92 L 01/05/18 22:20 - Orders/Labs/Meds Orders: Active Orders 24 hr Category Date Time Status EKG Documentation Completion [RC] STAT Care 01/05/18 20:15 Active Abdomen Series w Chest 1V [CR] Stat Exams 01/05/18 20:54 Taken Labs: Laboratory Tests 01/05/18 01/05/18 01/05/18 Range/Units 20:35 20:35 20:35 WBC 9.7 (4.0-10.0) x10^3/uL RBC 5.22 (4.00-5.50) x10^6/uL Hgb 16.1 H (12.0-16.0) g/dL Hct 47.6 H (33.0-47.0) % MCV 91.2 (78.0-93.0) fL MCH 30.8 (26.0-32.0) pg MCHC 33.8 (32.0-36.0) g/dL RDW Coeff of [place] 13.4 (10.0-15.0) % Plt Count 209 (130-400) x10^3/uL Neut % (Auto) 63.1 (50.0-80.0) % Lymph % (Auto) 22.5 L (25.0-50.0) % [place] % (Auto) 11.8 H (2.0-11.0) % Eos % (Auto) 2.3 (0.0-4.0) % Baso % (Auto) 0.3 (0.2-1.2) % PT 12.0 H (9.6-11.4) SEC INR 1.1 L (2.0-3.5) Sodium 132 L (136-145) mmol/L Potassium 3.4 L (3.5-5.1) mmol/L Chloride 94 L (98-107) mmol/L Carbon Dioxide 34 H (21-32) mmol/L Anion Gap 7.4 L (10-20) mmol/L BUN 35 H (7-18) mg/dL Creatinine 1.6 H (0.55-1.02) mg/dL Est Cr Clr Drug Dosing TNP Estimated GFR (MDRD) 30 Glucose 141 H (74-106) mg/dL Calcium 9.3 (8.5-10.1) mg/dL Corrected Calcium 9.46 (8.5-10.1) mg/dL Total Bilirubin 1.4 H (0.2-1.0) mg/dL AST 98 H (15-37) U/L ALT 52 (14-59) U/L Alkaline Phosphatase 167 H (46-116) U/L Troponin I < 0.017 (<=0.056) ng/mL C-Reactive Protein 1.1 H (<=0.9) mg/dL Total Protein 7.5 (6.4-8.2) g/dL Albumin 3.8 (3.4-5.0) g/dL Globulin 3.7 Albumin/Globulin Ratio 1.03 TSH, Ultra Sensitive 8.035 H (0.358-3.74) uIU/mL Urine Color (YELLOW) POC Urine Appearance (CLEAR) POC Urine pH (5.0-8.0) Ur Specific [place] (1.005-1.030) POC Urine Protein (NEGATIVE) POC Ur Glucose (UA) (NEGATIVE) POC Urine Ketones (NEGATIVE) POC Ur Occult Blood (NEGATIVE) POC Urine Nitrite (NEGATIVE) POC Urine Bilirubin (NEGATIVE) POC Urine Urobilinogen (0.2) POC U Leukocyte Esteras (NEGATIVE) 01/05/18 Range/Units 22:03 WBC (4.0-10.0) x10^3/uL RBC (4.00-5.50) x10^6/uL Hgb (12.0-16.0) g/dL Hct (33.0-47.0) % MCV (78.0-93.0) fL MCH (26.0-32.0) pg MCHC (32.0-36.0) g/dL RDW Coeff of [place] (10.0-15.0) % Plt Count (130-400) x10^3/uL Neut % (Auto) (50.0-80.0) % Lymph % (Auto) (25.0-50.0) % [place] % (Auto) (2.0-11.0) % Eos % (Auto) (0.0-4.0) % Baso % (Auto) (0.2-1.2) % PT (9.6-11.4) SEC INR (2.0-3.5) Sodium (136-145) mmol/L Potassium (3.5-5.1) mmol/L Chloride (98-107) mmol/L Carbon Dioxide (21-32) mmol/L Anion Gap (10-20) mmol/L BUN (7-18) mg/dL Creatinine (0.55-1.02) mg/dL Est Cr Clr Drug Dosing Estimated GFR (MDRD) Glucose (74-106) mg/dL Calcium (8.5-10.1) mg/dL Corrected Calcium (8.5-10.1) mg/dL Total Bilirubin (0.2-1.0) mg/dL AST (15-37) U/L ALT (14-59) U/L Alkaline Phosphatase (46-116) U/L Troponin I (<=0.056) ng/mL C-Reactive Protein (<=0.9) mg/dL Total Protein (6.4-8.2) g/dL Albumin (3.4-5.0) g/dL Globulin Albumin/Globulin Ratio TSH, Ultra Sensitive (0.358-3.74) uIU/mL Urine Color Dark yellow (YELLOW) POC Urine Appearance Clear (CLEAR) POC Urine pH 7.0 (5.0-8.0) Ur Specific [place] 1.010 (1.005-1.030) POC Urine Protein Negative (NEGATIVE) POC Ur Glucose (UA) Negative (NEGATIVE) POC Urine Ketones Negative (NEGATIVE) POC Ur Occult Blood Negative (NEGATIVE) POC Urine Nitrite Negative (NEGATIVE) POC Urine Bilirubin Negative (NEGATIVE) POC Urine Urobilinogen >=8.0 H (0.2) POC U Leukocyte Esteras Negative (NEGATIVE) - Radiology Interpretation Free Text/Narrative:: no free air. Large amount of stool noted on flat and upright abd. x-ray. Departure - Departure Time of Disposition: 22:45 Disposition: Home, Self-Care 01 Clinical Impression: Constipation, Elevated LFTs - Discharge Information Instructions: Constipation, Adult, Dehydration, Elderly, [id number] Referrals: Loli Oliveros, [Primary Care Provider] - Forms: ED Department Discharge Additional Instructions: Increase intake of water. Start miralax daily. Be up walking as much as possible. Rest tomorrow. - My Orders Last 24 Hours: My Active Orders 01/05/18 20:15 EKG Documentation Completion [RC] STAT 01/05/18 20:54 Abdomen Series w Chest 1V [CR] Stat - Assessment/Plan Last 24 Hours: My Active Orders 01/05/18 20:15 EKG Documentation Completion [RC] STAT 01/05/18 20:54 Abdomen Series w Chest 1V [CR] Stat Plan: Increase intake of water. Start miralax daily. Be up walking as much as possible. Rest tomorrow. Return to ER if discomfort is getting worse. Follow-up in clinic for recheck. She has a mild increase in LFTs since her last visit, possibly due to new medication. No changes at this time. She can discuss this on her follow-up visit.
== END 2018-01-05 22:25 | disposition home or self-care (01) ==
LOC: VM.ED 20:13
DX: K59.00 Constipation, unspecified (principal); R79.89 Other specified abnormal findings of blood chemistry; I10 Essential (primary) hypertension; E03.9 Hypothyroidism, unspecified; Z79.82 Long term (current) use of aspirin; Z79.899 Other long term (current) drug therapy; Z88.5 Allergy status to narcotic agent; Z88.1 Allergy status to other antibiotic agents
CPT/HCPCS: 36415; 74022; 80053; 81002; 84443; 84484; 85025; 85610; 86140; 93005; 99285

== ENCOUNTER 2018-01-16 22:48 | Observation (INO) | payer MEDICARE, BC ==
[2018-01-16] MEDS ORDERED: HYDROmorphone 1 MG/ML Syringe IVPUSH ONE (23:06)
[2018-01-16] MEDS ORDERED: Pantoprazole 40 MG Vial IVPUSH ONE (23:51)
[2018-01-17 00:07] LABS: CHLORIDE,CL 95 mmol/L (98-107)
[2018-01-17 00:08] LABS: ANION GAP 10.6 mmol/L (10-20); SODIUM,NA 133 mmol/L (136-145)
--- NOTE | 2018-01-17 01:21 | EDM.PDOC ---
ED HPI GENERAL MEDICAL PROBLEM - General Chief Complaint: Cardiovascular Problem Stated Complaint: Chest Pain / SOB Time Seen by Provider: 01/16/18 23:00 Source of Information: Reports: Patient, EMS, Family History Limitations: Reports: No Limitations - History of Present Illness INITIAL COMMENTS - FREE TEXT/NARRATIVE: presents to ER with complaints of respirophasic, sharp chest pain, worse with movement. She has been dealing with this since 12/22/17. She is a patient of Dr. Loli Oliveros. She has been on 2 seperate courses of prednisone for this. When she was in the ER on 12/22, she had a postive d dimer and underwent CTA of the chest, which was negative for acute pathology. The pain does not radiate elsewhere. Complains of mild cough. No significant fever or chills, but had a low grade temp on admit. Denies any jaw, arm, neck or back pain. Denies any nausea,vomiting, or diarrhea. No hemoptysis. She does complain that she has some increased peripheral edema recently. She states that her HCTZ with decreased yesterday due to hypotension. She states that she was very active today. She went for a truck ride and spent a lot of time with family who is visiting and may have exerted herself. She has been in the ER numerous times over the past month, including for a TIA with subsequent transfer to [facility] in [place]. There was no interventions performed. She was started on eliquis. Onset: Today Location: Reports: Chest Quality: Reports: Ache Treatments PARAFFINER: Reports: Oxygen Right Chest Pain Score (Numeric/FACES): 9 - Related Data Allergies Allergy/AdvReac Type Severity Reaction Status Date / Time tetracycline [Tetracycline] Allergy Unknown Cannot Verified 01/17/18 00:18 Remember duloxetine [From Cymbalta] Allergy Confusion Verified 01/17/18 00:18 gabapentin [From Neurontin] Allergy Other Verified 01/17/18 00:18 hydrocodone Allergy Rash Verified 01/17/18 00:18 tramadol Allergy Rash Verified 01/17/18 00:18 Home Meds: Home Meds Hydrochlorothiazide 12.5 mg PO DAILY 03/08/14 [History] Metoprolol Succinate [Toprol XL] 50 mg PO DAILY 03/08/14 [History] Doxepin [SINEquan] 25 mg PO Q6H PRN 07/01/17 [History] HYDROmorphone [Dilaudid] 2 mg PO QID PRN 07/01/17 [History] Levothyroxine Sodium [Synthroid] 25 mcg PO DAILY 07/01/17 [History] Sennosides/Docusate Sodium [Senna-S Tablet] 1 tab PO BID 07/01/17 [History] Albuterol [Proventil] 2.5 mg .XX ASDIRECTED PRN 01/05/18 [History] Apixaban [Eliquis] 5 mg PO BID 01/05/18 [History] LORazepam 0.5 mg PO BID PRN 01/05/18 [History] amLODIPine Besylate [Amlodipine Besylate] 10 mg PO DAILY 01/05/18 [History] diphenhydrAMINE [Benadryl] 25 mg PO BID PRN MDD 4xdaily 01/05/18 [History] Cyanocobalamin (Vitamin B-12) [Vitamin B-12] 150 mcg PO DAILY 01/17/18 [History] Mirtazapine 7.5 mg PO BEDTIME 01/17/18 [History] predniSONE [Prednisone] 5 mg PO DAILY 01/17/18 [History] Past Medical History HEENT History: Reports: Hard of Hearing, Impaired Vision Other HEENT History: pseudophakia. YAG capsulotomy Cardiovascular History: Reports: Hypertension, Stents, Other (See Below) Other Cardiovascular History: Stents placed "years ago" Respiratory History: Reports: COPD Gastrointestinal History: Reports: GERD Other Gastrointestinal History: dyspepsia Musculoskeletal History: Reports: Back Pain, Chronic Other Musculoskeletal History: collapsed vertebra Psychiatric History: Reports: Anxiety, Other (See Below) Other Psychiatric History: Insomnia Endocrine/Metabolic History: Reports: Hypothyroidism Hematologic History: Reports: Other (See Below) Other Hematologic History: hypokalemia Dermatologic History: Reports: Other (See Below) Other Dermatologic History: Various rashes on arms, upper chest (possibly from pain pills or stress). Possible yeast under breasts and near belly button ( using lotrimin cream for this) - Past Surgical History GI Surgical History: Reports: None Social & Family History - Family History Family Medical History: Noncontributory - Tobacco Use Smoking Status *Q: Former Smoker Used Tobacco, but Quit: Yes Month/Year Tobacco Last Used: 10 years ago - Caffeine Use Caffeine Use: Reports: Coffee Other Caffeine Use: 1-2 cups coffee daily - Recreational Drug Use Recreational Drug Use: No ED ROS GENERAL - Review of Systems Review Of Systems: See Below Constitutional: Reports: Malaise, Fatigue HEENT: Reports: No Symptoms Respiratory: Reports: No Symptoms, Pleuritic Chest Pain Cardiovascular: Reports: Edema Endocrine: Reports: No Symptoms GI/Abdominal: Reports: No Symptoms : Reports: No Symptoms Musculoskeletal: Reports: No Symptoms Skin: Reports: No Symptoms Neurological: Reports: No Symptoms Psychiatric: Reports: No Symptoms Hematologic/Lymphatic: Reports: No Symptoms Immunologic: Reports: No Symptoms ED EXAM, GENERAL - Physical Exam Exam: See Below Exam Limited By: No Limitations General Appearance: Alert, WD/WN, No Apparent Distress Eye Exam: Bilateral Eye: EOMI, Normal Fundi, Normal Inspection, PERRL Throat/Mouth: Normal Inspection, Normal Lips, Normal Teeth, Normal Gums, Normal Oropharynx, Normal Voice, No Airway Compromise Head: Atraumatic, Normocephalic Neck: Normal Inspection, Supple, Non-Tender, Full Range of Motion Respiratory/Chest: No Respiratory Distress, Lungs Clear, No Accessory Muscle Use , Other (see HPI) Cardiovascular: Normal Peripheral Pulses, No Gallop, No JVD, No Rub, Irregularly Irregular GI/Abdominal: Normal Bowel Sounds, Soft, Non-Tender, No Organomegaly, No Distention, No Abnormal Bruit, No Mass (Female) Exam: Deferred Rectal (Female) Exam: Deferred Back Exam: Normal Inspection, Full Range of Motion, NT Extremities: Normal Inspection, Normal Range of Motion, Non-Tender, Normal Capillary Refill, No Pedal Edema Neurological: Alert, Oriented, CN II-XII Intact, Normal Cognition, Normal Gait, Normal Reflexes, No Motor/Sensory Deficits Psychiatric: Normal Affect, Normal Mood EKG INTERPRETATION Rhythm: A-Fib Course - Vital Signs Last Recorded V/S: Last Vital Signs Temp 37.0 C 01/17/18 01:41 Pulse 77 01/17/18 01:41 Resp 20 01/17/18 01:41 BP 152/81 H 01/17/18 01:41 Pulse Ox 96 01/17/18 01:41 - Orders/Labs/Meds Orders: Active Orders 24 hr Category Date Time Status Patient Status [ADT] Routine ADT 01/17/18 00:26 Active EKG Documentation Completion [RC] STAT Care 01/16/18 23:05 Active Chest 2V [CR] Stat Exams 01/16/18 23:05 Taken Medication Orders Amlodipine Besylate (Norvasc) 10 mg PO DAILY [facility] Doxepin HCl (Sinequan) 25 mg PO Q6H PRN PRN Reason: Itching Hydrochlorothiazide (Hydrochlorothiazide) 12.5 mg PO DAILY [facility] Hydromorphone HCl (Dilaudid) 2 mg PO QID PRN PRN Reason: Pain (moderate 4-6) Levothyroxine Sodium (Levothyroxine) 25 mcg PO DAILY [facility] Lorazepam (Ativan) 0.5 mg PO BID PRN PRN Reason: Anxiety Metoprolol Succinate (Toprol Xl) 50 mg PO DAILY [facility] Non-Formulary Medication (Albuterol) 2.5 mg .XX ASDIRECTED PRN PRN Reason: Shortness of Breath Non-Formulary Medication (Apixaban [Eliquis]) 5 mg PO BID [facility] Non-Formulary Medication (Cyanocobalamin (Vitamin B-12) [Vitamin B-12]) 150 mcg PO DAILY [facility] Non-Formulary Medication (Diphenhydramine [Benadryl]) 25 mg PO BID PRN PRN Reason: Itching Non-Formulary Medication (Mirtazapine [Mirtazapine]) 7.5 mg PO BEDTIME [facility] Prednisone (Prednisone) 5 mg PO DAILY [facility] Senna/Docusate Sodium (Senna Plus) 1 tab PO BID [facility] Labs: Laboratory Tests 01/16/18 01/16/18 01/16/18 Range/Units 23:30 23:30 23:30 WBC 9.3 (4.0-10.0) x10^3/uL RBC 4.96 (4.00-5.50) x10^6/uL Hgb 15.2 (12.0-16.0) g/dL Hct 45.3 (33.0-47.0) % MCV 91.3 (78.0-93.0) fL MCH 30.6 (26.0-32.0) pg MCHC 33.6 (32.0-36.0) g/dL RDW Coeff of [place] 13.3 (10.0-15.0) % Plt Count 218 (130-400) x10^3/uL Neut % (Auto) 64.7 (50.0-80.0) % Lymph % (Auto) 24.4 L (25.0-50.0) % [place] % (Auto) 9.5 (2.0-11.0) % Eos % (Auto) 1.1 (0.0-4.0) % Baso % (Auto) 0.3 (0.2-1.2) % PT 11.3 (9.6-11.4) SEC INR 1.1 L (2.0-3.5) D-Dimer, Quantitative 0.78 H (<=0.58) mg/LFEU Sodium 133 L (136-145) mmol/L Potassium 3.6 (3.5-5.1) mmol/L Chloride 95 L (98-107) mmol/L Carbon Dioxide 31 (21-32) mmol/L Anion Gap 10.6 (10-20) mmol/L BUN 31 H (7-18) mg/dL Creatinine 1.6 H (0.55-1.02) mg/dL Est Cr Clr Drug Dosing TNP Estimated GFR (MDRD) 30 Glucose 116 H (74-106) mg/dL Calcium 9.3 (8.5-10.1) mg/dL Corrected Calcium 9.54 (8.5-10.1) mg/dL Phosphorus 3.6 (2.6-4.7) mg/dL Magnesium 2.0 (1.8-2.4) mg/dL Total Bilirubin 0.6 (0.2-1.0) mg/dL AST 22 (15-37) U/L ALT 30 (14-59) U/L Alkaline Phosphatase 139 H (46-116) U/L POC Troponin I (0.00-0.08) ng/mL C-Reactive Protein 0.5 (<=0.9) mg/dL NT-Pro-B Natriuret Pep (<=450) pg/mL Total Protein 7.6 (6.4-8.2) g/dL Albumin 3.7 (3.4-5.0) g/dL Globulin 3.9 Albumin/Globulin Ratio 0.95 POC Result Comm 01/16/18 01/16/18 Range/Units 23:30 23:37 WBC (4.0-10.0) x10^3/uL RBC (4.00-5.50) x10^6/uL Hgb (12.0-16.0) g/dL Hct (33.0-47.0) % MCV (78.0-93.0) fL MCH (26.0-32.0) pg MCHC (32.0-36.0) g/dL RDW Coeff of [place] (10.0-15.0) % Plt Count (130-400) x10^3/uL Neut % (Auto) (50.0-80.0) % Lymph % (Auto) (25.0-50.0) % [place] % (Auto) (2.0-11.0) % Eos % (Auto) (0.0-4.0) % Baso % (Auto) (0.2-1.2) % PT (9.6-11.4) SEC INR (2.0-3.5) D-Dimer, Quantitative (<=0.58) mg/LFEU Sodium (136-145) mmol/L Potassium (3.5-5.1) mmol/L Chloride (98-107) mmol/L Carbon Dioxide (21-32) mmol/L Anion Gap (10-20) mmol/L BUN (7-18) mg/dL Creatinine (0.55-1.02) mg/dL Est Cr Clr Drug Dosing Estimated GFR (MDRD) Glucose (74-106) mg/dL Calcium (8.5-10.1) mg/dL Corrected Calcium (8.5-10.1) mg/dL Phosphorus (2.6-4.7) mg/dL Magnesium (1.8-2.4) mg/dL Total Bilirubin (0.2-1.0) mg/dL AST (15-37) U/L ALT (14-59) U/L Alkaline Phosphatase (46-116) U/L POC Troponin I 0.10 H* (0.00-0.08) ng/mL C-Reactive Protein (<=0.9) mg/dL NT-Pro-B Natriuret Pep 442 (<=450) pg/mL Total Protein (6.4-8.2) g/dL Albumin (3.4-5.0) g/dL Globulin Albumin/Globulin Ratio POC Result Comm Called critical res Meds: Medications Generic Name Dose Route Start Last Admin Trade Name Freq PRN Reason Stop Dose Admin Amlodipine Besylate 10 mg 01/17/18 08:00 Norvasc PO DAILY [facility] Doxepin HCl 25 mg 01/17/18 02:15 Sinequan PO Q6H PRN Itching Hydrochlorothiazide 12.5 mg 01/17/18 08:00 Hydrochlorothiazide PO DAILY [facility] Hydromorphone HCl 2 mg 01/17/18 02:15 Dilaudid PO QID PRN Pain (moderate 4-6) Levothyroxine Sodium 25 mcg 01/17/18 08:00 Levothyroxine PO DAILY [facility] Lorazepam 0.5 mg 01/17/18 02:15 Ativan PO BID PRN Anxiety Metoprolol Succinate 50 mg 01/17/18 08:00 Toprol Xl PO DAILY [facility] Non-Formulary Medication 2.5 mg 01/17/18 02:15 Albuterol .XX ASDIRECTED PRN Shortness of Breath Non-Formulary Medication 5 mg 01/17/18 08:00 Apixaban [Eliquis] PO BID [facility] Non-Formulary Medication 150 mcg 01/17/18 08:00 Cyanocobalamin (Vitamin B-12) [Vitamin B-12] PO DAILY [facility] Non-Formulary Medication 25 mg 01/17/18 02:15 Diphenhydramine [Benadryl] PO BID PRN Itching Non-Formulary Medication 7.5 mg 01/17/18 20:00 Mirtazapine [Mirtazapine] PO BEDTIME [facility] Prednisone 5 mg 01/17/18 08:00 Prednisone PO DAILY [facility] Senna/Docusate Sodium 1 tab 01/17/18 08:00 Senna Plus PO BID [facility] Discontinued Medications Generic Name Dose Route Start Last Admin Trade Name Freq PRN Reason Stop Dose Admin Hydromorphone HCl 1 mg 01/16/18 23:06 01/16/18 23:18 Dilaudid IVPUSH 01/16/18 23:07 1 mg ONETIME ONE Administration Pantoprazole Sodium 80 mg 01/16/18 23:51 01/17/18 00:11 Protonix Iv IVPUSH 01/16/18 23:52 Not Given ONETIME ONE Departure - Departure Time of Disposition: 01:20 Disposition: Admitted As Inpatient 65 Clinical Impression: Pleurisy, Chronic kidney disease - Discharge Information - Problem List Review Problem List Initiated/Reviewed/Updated: Yes - My Orders Last 24 Hours: My Active Orders 01/16/18 23:05 EKG Documentation Completion [RC] STAT Chest 2V [CR] Stat 01/17/18 00:26 Patient Status [ADT] Routine - Assessment/Plan Admission H&P: Please use this note as an admission H&P Last 24 Hours: My Active Orders 01/16/18 23:05 EKG Documentation Completion [RC] STAT Chest 2V [CR] Stat 01/17/18 00:26 Patient Status [ADT] Routine Plan: will be admitted observation. She did have a positive troponin which is likely of renal etiology. Will continue tele and will repeat trop I in 6 hours. She is currently anticoagulated with eliquis, so she is at low risk for coronary event or DVT. Loli Oliveros will be admitting and attending. She will see the pt. in the AM. Pt. is a code 2, DNI/DNR.
[2018-01-17] MEDS ORDERED: diphenhydrAMINE 25 MG Cap PO PRN (02:15)
[2018-01-17] MEDS ORDERED: LORazepam 0.5 MG Tab PO PRN (02:15)
[2018-01-17] MEDS ORDERED: Doxepin 25 MG Cap PO PRN (02:15)
[2018-01-17] MEDS ORDERED: HYDROmorphone 1 MG/ML Syringe IVPUSH ONE (02:28)
[2018-01-17] MEDS: HYDROmorphone 2 MG Tab PO PRN ×2 (04:37→15:34)
[2018-01-17] MEDS ORDERED: HYDROmorphone 1 MG/ML Syringe IVPUSH STA (05:59)
[2018-01-17] MEDS ORDERED: amLODIPine 10 MG Tab PO SCH (08:00)
[2018-01-17] MEDS ORDERED: Levothyroxine 25 MCG Tab PO SCH (08:00)
[2018-01-17] MEDS ORDERED: Metoprolol Succinate 50 MG Tab.ER PO SCH (08:00)
[2018-01-17] MEDS ORDERED: Hydrochlorothiazide 25 MG Tab PO SCH (08:00)
[2018-01-17] MEDS ORDERED: predniSONE 5 MG Tab PO SCH (08:00)
[2018-01-17] MEDS ORDERED: Beta-Carotene (Vitamin A) w/Vitamin C & E plus Minerals Tab PO SCH (08:00)
[2018-01-17] MEDS ORDERED: Apixaban 2.5 MG Tab PO SCH (09:00)
[2018-01-17] MEDS ORDERED: Take Home: Albuterol 6.7 GM Inhaler, 1 Inhaler Pack INH PRN (09:02)
[2018-01-17] MEDS ORDERED: Albuterol 0.083% 2.5 MG/3 ML Neb Soln INH PRN ×2 (09:13→11:00)
[2018-01-17] MEDS ORDERED: Polyethylene Glycol 3350 Powder 17 GM Packet PO SCH (09:15)
[2018-01-17] MEDS ORDERED: Metoprolol Succinate 50 MG Tab.ER PO ONE (09:15)
[2018-01-17] MEDS: Acetaminophen 325 MG Tab PO SCH ×2 (09:29→13:24)
[2018-01-17 16:00] VITALS: BP 150/60
[2018-01-17] MEDS ORDERED: Cefuroxime 250 MG Tab PO ONE (16:59)
[2018-01-17] MEDS ORDERED: Mirtazapine 15 MG Tab PO SCH (20:00)
--- NOTE | 2018-01-17 20:41 | PCM.DCSUM1 ---
Discharge Summary - Hospital Course Free Text/Narrative:: 87 yo presented to the ER with 4 hrs of worsening chest pain worse with inspiration not associated with cough, fever, or SOB. She had been having this chest pain of varying intensity over the last month and had an ER visit on 12/[address] PE protocol but showing emphysema. She followed up in the clinic and was given prednisone for pleurisy and her symptoms improved but then returned. She had an ER visit this month also for stroke in the [facility] and went to [facility] and was started on Eliquis and has no major deficits. She otherwise at one point was treated with Bactrim for a UTI and had an ER visit for constipation also. She had been in to the clinic and her blood pressure was running low around 100 so HCTZ was decreased to 12.5 and her Toprol was decreased to 50. Norvasc had recently been increased to 10. She has had more leg swelling left greater than right. She had been sitting more and traveling with family prior to admission. She had reported that she had back pain early on this month with her chest pain but that is better now. She said her pain was down to a 4. She seemed a little tense during her stay even her daughter commented on that but she declined to use any ativan. - Discharge Data Discharge Date: 01/17/18 Discharge Disposition: Home, Self-Care 01 Condition: Fair - Discharge Diagnosis/Problem(s) (1) Bronchitis SNOMED Code(s): 59727578 ICD Code: J40 - BRONCHITIS, NOT SPECIFIED ACUTE OR CHRONIC Status: Chronic Priority: Medium - Patient Summary/Data Hospital Course: Patient observed with telemetry, she had a few PVCs but otherwise no arrhythmias. Chest pain improved after dilaudid and using a heating pad but never completely resolved. She also received nebs and it seemed to help. She as able to rest during the day and had family visit. Discussion was had to discharge her back to assisted living with family and she was agreeable. Blood pressure was in the 150 systolic range on discharge. Troponin was mildly elevated on admission and returned to normal by the next morning. She was not started on a statin as she recent had been prescribed one after her stroke and she did not want to take it. Renal function was not repeated but was near her baseline range of 1.4. Her Eliquis dose was decreased to 2.5 BID. - Patient Instructions Diet: Usual Diet as Tolerated Activity: As Tolerated Driving: Do Not Drive Notify Provider of: Fever, Increased Pain, Swelling and Redness, Nausea and/or Vomiting - Discharge Plan *PRESCRIPTION DRUG MONITORING PROGRAM REVIEWED*: No *COPY OF PRESCRIPTION DRUG MONITORING REPORT IN PATIENT MILENA: No Prescriptions/Med Rec: Acetaminophen [Tylenol] 650 mg PO TID #90 tablet Cefuroxime Axetil [Ceftin] 250 mg PO BID #10 tablet Metoprolol Succinate [Toprol XL 50mg] 100 mg PO DAILY #30 tab.er predniSONE [Prednisone] 20 mg PO DAILY #5 tablet Home Medications: Home Meds Hydrochlorothiazide 12.5 mg PO DAILY 03/08/14 [History] Doxepin [SINEquan] 25 mg PO Q6H PRN 07/01/17 [History] HYDROmorphone [Dilaudid] 2 mg PO QID PRN 07/01/17 [History] Levothyroxine Sodium [Synthroid] 25 mcg PO DAILY 07/01/17 [History] Sennosides/Docusate Sodium [Senna-S Tablet] 1 tab PO BID 07/01/17 [History] Apixaban [Eliquis] 5 mg PO BID 01/05/18 [History] LORazepam 0.5 mg PO BID PRN 01/05/18 [History] amLODIPine Besylate [Amlodipine Besylate] 10 mg PO DAILY 01/05/18 [History] diphenhydrAMINE [Benadryl] 25 mg PO BID PRN MDD 4xdaily 01/05/18 [History] Acetaminophen [Tylenol] 650 mg PO TID #90 tablet 01/17/18 [Rx] Albuterol [Proventil HFA] 1 puff INH Q4H PRN 01/17/18 [History] Beta-Carotene(A) w/C & E/Min [Prosight] 1 tab PO DAILY 01/17/18 [History] Cefuroxime Axetil [Ceftin] 250 mg PO BID #10 tablet 01/17/18 [Rx] Metoprolol Succinate [Toprol XL 50mg] 100 mg PO DAILY #30 tab.er 01/17/18 [Rx] Mirtazapine 7.5 mg PO BEDTIME 01/17/18 [History] Polyethylene Glycol 3350 [MiraLAX] 17 gm PO BID 01/17/18 [History] predniSONE [Prednisone] 20 mg PO DAILY #5 tablet 01/17/18 [Rx] Forms: ED Department Discharge Referrals: Loli Oliveros DO [Primary Care Provider] - - Discharge Summary/Plan Comment DC Time >30 min.: No - General Info Date of Service: 01/17/18 - Review of Systems General: Reports: Fatigue. Denies: Fever, Chills HEENT: Reports: No Symptoms Pulmonary: Reports: Pleuritic Chest Pain. Denies: Shortness of Breath, Cough, Wheezing Cardiovascular: Reports: Chest Pain. Denies: Palpitations, Dyspnea on Exertion , Lightheadedness Gastrointestinal: Reports: No Symptoms Musculoskeletal: Denies: Back Pain, Leg Pain Skin: Reports: No Symptoms Neurological: Reports: No Symptoms Psychiatric: Reports: No Symptoms - Patient Data Vitals - Most Recent: Last Vital Signs Temp 98.8 F 01/17/18 15:57 Pulse 68 01/17/18 15:57 Resp 20 01/17/18 16:28 BP 150/60 H 01/17/18 15:57 Pulse Ox 93 L 01/17/18 15:57 Weight - Most Recent: 74.843 kg I&O - Last 24 hours: Intake & Output 01/17/18 01/17/18 01/17/18 06:59 14:59 22:59 Intake Total 600 360 Output Total 1300 200 Balance -700 360 -200 Lab Results - Last 24 hrs: Laboratory Results - last 24 hr 01/16/18 01/16/18 01/16/18 Range/Units 23:30 23:30 23:30 WBC 9.3 (4.0-10.0) x10^3/uL RBC 4.96 (4.00-5.50) x10^6/uL Hgb 15.2 (12.0-16.0) g/dL Hct 45.3 (33.0-47.0) % MCV 91.3 (78.0-93.0) fL MCH 30.6 (26.0-32.0) pg MCHC 33.6 (32.0-36.0) g/dL RDW Coeff of [place] 13.3 (10.0-15.0) % Plt Count 218 (130-400) x10^3/uL Neut % (Auto) 64.7 (50.0-80.0) % Lymph % (Auto) 24.4 L (25.0-50.0) % [place] % (Auto) 9.5 (2.0-11.0) % Eos % (Auto) 1.1 (0.0-4.0) % Baso % (Auto) 0.3 (0.2-1.2) % PT 11.3 (9.6-11.4) SEC INR 1.1 L (2.0-3.5) D-Dimer, Quantitative 0.78 H (<=0.58) mg/LFEU Sodium 133 L (136-145) mmol/L Potassium 3.6 (3.5-5.1) mmol/L Chloride 95 L (98-107) mmol/L Carbon Dioxide 31 (21-32) mmol/L Anion Gap 10.6 (10-20) mmol/L BUN 31 H (7-18) mg/dL Creatinine 1.6 H (0.55-1.02) mg/dL Est Cr Clr Drug Dosing TNP Estimated GFR (MDRD) 30 Glucose 116 H (74-106) mg/dL Calcium 9.3 (8.5-10.1) mg/dL Corrected Calcium 9.54 (8.5-10.1) mg/dL Phosphorus 3.6 (2.6-4.7) mg/dL Magnesium 2.0 (1.8-2.4) mg/dL Total Bilirubin 0.6 (0.2-1.0) mg/dL AST 22 (15-37) U/L ALT 30 (14-59) U/L Alkaline Phosphatase 139 H (46-116) U/L POC Troponin I (0.00-0.08) ng/mL Troponin I (<=0.056) ng/mL C-Reactive Protein 0.5 (<=0.9) mg/dL NT-Pro-B Natriuret Pep (<=450) pg/mL Total Protein 7.6 (6.4-8.2) g/dL Albumin 3.7 (3.4-5.0) g/dL Globulin 3.9 Albumin/Globulin Ratio 0.95 POC Result Comm 01/16/18 01/16/18 01/17/18 Range/Units 23:30 23:37 07:15 WBC (4.0-10.0) x10^3/uL RBC (4.00-5.50) x10^6/uL Hgb (12.0-16.0) g/dL Hct (33.0-47.0) % MCV (78.0-93.0) fL MCH (26.0-32.0) pg MCHC (32.0-36.0) g/dL RDW Coeff of [place] (10.0-15.0) % Plt Count (130-400) x10^3/uL Neut % (Auto) (50.0-80.0) % Lymph % (Auto) (25.0-50.0) % [place] % (Auto) (2.0-11.0) % Eos % (Auto) (0.0-4.0) % Baso % (Auto) (0.2-1.2) % PT (9.6-11.4) SEC INR (2.0-3.5) D-Dimer, Quantitative (<=0.58) mg/LFEU Sodium (136-145) mmol/L Potassium (3.5-5.1) mmol/L Chloride (98-107) mmol/L Carbon Dioxide (21-32) mmol/L Anion Gap (10-20) mmol/L BUN (7-18) mg/dL Creatinine (0.55-1.02) mg/dL Est Cr Clr Drug Dosing Estimated GFR (MDRD) Glucose (74-106) mg/dL Calcium (8.5-10.1) mg/dL Corrected Calcium (8.5-10.1) mg/dL Phosphorus (2.6-4.7) mg/dL Magnesium (1.8-2.4) mg/dL Total Bilirubin (0.2-1.0) mg/dL AST (15-37) U/L ALT (14-59) U/L Alkaline Phosphatase (46-116) U/L POC Troponin I 0.10 H* (0.00-0.08) ng/mL Troponin I < 0.017 (<=0.056) ng/mL C-Reactive Protein (<=0.9) mg/dL NT-Pro-B Natriuret Pep 442 (<=450) pg/mL Total Protein (6.4-8.2) g/dL Albumin (3.4-5.0) g/dL Globulin Albumin/Globulin Ratio POC Result Comm Called critical res Med Orders - Current: Current Medications Discontinued Medications Acetaminophen (Tylenol) 650 mg PO TID [facility] Last Admin: 01/17/18 13:24 Dose: Not Given Albuterol (Proventil Neb Soln) 2.5 mg INH Q4H PRN PRN Reason: SHORTNESS OF BREATH Albuterol (Take Home: Albuterol 6.7 Gm, 1 Inh Pack) packet INH Q4H PRN PRN Reason: Wheezing Albuterol (Proventil Neb Soln) 2.5 mg INH Q4H PRN PRN Reason: SHORTNESS OF BREATH Last Admin: 01/17/18 09:35 Dose: 2.5 mg Amlodipine Besylate (Norvasc) 10 mg PO DAILY [facility] Last Admin: 01/17/18 07:41 Dose: 10 mg Apixaban (Eliquis) 2.5 mg PO BID [facility] Last Admin: 01/17/18 09:29 Dose: 2.5 mg Cefuroxime Axetil (Ceftin) 250 mg PO ONETIME ONE Stop: 01/17/18 17:00 Last Admin: 01/17/18 17:23 Dose: 250 mg Diphenhydramine HCl (Benadryl) 25 mg PO BID PRN PRN Reason: Itching Doxepin HCl (Sinequan) 25 mg PO Q6H PRN PRN Reason: Itching Hydrochlorothiazide (Hydrochlorothiazide) 12.5 mg PO DAILY [facility] Last Admin: 01/17/18 07:42 Dose: 12.5 mg Hydromorphone HCl (Dilaudid) 1 mg IVPUSH ONETIME ONE Stop: 01/16/18 23:07 Last Admin: 01/16/18 23:18 Dose: 1 mg Hydromorphone HCl (Dilaudid) 2 mg PO QID PRN PRN Reason: Pain (moderate 4-6) Last Admin: 01/17/18 15:34 Dose: 2 mg Hydromorphone HCl (Dilaudid) 1 mg IVPUSH ONETIME ONE Stop: 01/17/18 02:29 Last Admin: 01/17/18 02:43 Dose: 1 mg Hydromorphone HCl (Dilaudid) 1 mg IVPUSH ONETIME STA Stop: 01/17/18 06:00 Last Admin: 01/17/18 06:08 Dose: 1 mg Levothyroxine Sodium (Levothyroxine) 25 mcg PO DAILY [facility] Last Admin: 01/17/18 07:40 Dose: 25 mcg Lorazepam (Ativan) 0.5 mg PO BID PRN PRN Reason: Anxiety Metoprolol Succinate (Toprol Xl) 50 mg PO DAILY [facility] Last Admin: 01/17/18 07:40 Dose: 50 mg Metoprolol Succinate (Toprol Xl) 100 mg PO DAILY [facility] Metoprolol Succinate (Toprol Xl) 50 mg PO ONETIME ONE Stop: 01/17/18 09:16 Last Admin: 01/17/18 09:29 Dose: 50 mg Mirtazapine (Remeron) 7.5 mg PO BEDTIME [facility] Multivitamins/Minerals (Prosight) 1 tab PO DAILY [facility] Last Admin: 01/17/18 07:40 Dose: 1 tab Pantoprazole Sodium (Protonix Iv) 80 mg IVPUSH ONETIME ONE Stop: 01/16/18 23:52 Last Admin: 01/17/18 00:11 Dose: Not Given Polyethylene Glycol (Miralax) 17 gm PO BID [facility] Last Admin: 01/17/18 09:29 Dose: 17 gm Prednisone (Prednisone) 5 mg PO DAILY [facility] Last Admin: 01/17/18 07:41 Dose: 5 mg Senna/Docusate Sodium (Senna Plus) 1 tab PO BID [facility] Last Admin: 01/17/18 07:41 Dose: 1 tab - Exam General: Reports: Alert, Oriented, No Acute Distress Neck: Reports: Supple Lungs: Reports: Clear to Auscultation, Normal Respiratory Effort Cardiovascular: Reports: Regular Rate, Regular Rhythm, Other (tenderness to palpation of the chest wall) GI/Abdominal Exam: Normal Bowel Sounds, Soft, Non-Tender Back Exam: Reports: Normal Inspection, Full Range of Motion Extremities: Pedal Edema (left greater than the right ), Other (tenderness to palpation of the anterior borja). No: Kay's Sign Skin: Reports: Warm, Dry Neurological: Denies: Normal Gait Psy/Mental Status: Reports: Alert, Normal Affect
[2018-01-18] MEDS ORDERED: Metoprolol Succinate 50 MG Tab.ER PO SCH (08:00)
== END 2018-01-17 18:05 | disposition home or self-care (01) ==
LOC: VM.ED 22:48 → INTOOBSV 01-17 01:00 → VM.MS 01-17 01:00
PROVIDERS: ADMIT Internal Medicine; ATTEND Internal Medicine
DX: R09.1 Pleurisy (principal); J40 Bronchitis, not specified as acute or chronic; J43.9 Emphysema, unspecified; I12.9 Hypertensive chronic kidney disease with stage 1 through stage 4 chronic kidney disease, or unspecified chronic kidney disease; N18.9 Chronic kidney disease, unspecified; K21.9 Gastro-esophageal reflux disease without esophagitis; F41.9 Anxiety disorder, unspecified; E03.9 Hypothyroidism, unspecified; E87.6 Hypokalemia; Z88.1 Allergy status to other antibiotic agents; Z88.5 Allergy status to narcotic agent; Z88.6 Allergy status to analgesic agent; Z79.899 Other long term (current) drug therapy; Z87.891 Personal history of nicotine dependence
CPT/HCPCS: 36415; 71046; 80053; 83735; 83880; 84100; 84484; 85025; 85379; 85610; 86140; 93005; 93010; 94640; 94760; 96374; 96376; 99285; 99285-GF; A9270-GY; G0378; J1170; J7613-GY

== ENCOUNTER 2018-09-16 13:24 | Observation (INO) | payer MEDICARE, BC ==
[2018-09-16] MEDS ORDERED: Sodium Chloride 0.9% 10 ML Syringe FLUSH PRN (13:53)
--- NOTE | 2018-09-16 14:08 | EDM.PDOC ---
ED HPI GENERAL MEDICAL PROBLEM - General Chief Complaint: General Stated Complaint: DEHYDRATION, NOT FEELING WELL Time Seen by Provider: 09/16/18 13:30 Source of Information: Reports: Patient, Family History Limitations: Reports: No Limitations - History of Present Illness INITIAL COMMENTS - FREE TEXT/NARRATIVE: Patient brought in with complaints of increasing weakness, depression, not eating, some increased shortness of breath. Suffers from extensive chronic back pain with multiple vertebroplasty procedures, the most recent being in August 2018. Her pain has improved since her surgery, however she does continue to have pain rated 3-4/10 consistently. Has recently started taking CBD oil. Denies chest pain, abdominal pain, endorses lower back back pain across both flanks. No fever, chills, sweating, some left leg edema. Reports this general feeling of weakness and lack of appetite has been ongoing for several weeks. Onset: Gradual Duration: Intermittent Location: Reports: Generalized Severity: Moderate Worsens with: Reports: Movement Associated Symptoms: Reports: Malaise, Shortness of Breath - Related Data Allergies Allergy/AdvReac Type Severity Reaction Status Date / Time tetracycline [Tetracycline] Allergy Unknown Hives Verified 03/14/18 16:24 duloxetine [From Cymbalta] Allergy Confusion Verified 03/14/18 16:24 gabapentin [From Neurontin] Allergy Other Verified 03/14/18 16:24 hydrocodone Allergy Rash Verified 03/14/18 16:24 tramadol Allergy Rash Verified 03/14/18 16:24 Home Meds: Home Meds HYDROmorphone [Dilaudid] 2 mg PO QID PRN 07/01/17 [History] Levothyroxine Sodium [Synthroid] 25 mcg PO DAILY 07/01/17 [History] Sennosides/Docusate Sodium [Senna-S Tablet] 1 tab PO BID PRN 07/01/17 [History] Apixaban [Eliquis] 2.5 mg PO BID 01/05/18 [History] amLODIPine Besylate [Amlodipine Besylate] 10 mg PO DAILY 01/05/18 [History] Albuterol [Proventil HFA] 1 puff INH Q4H PRN 01/17/18 [History] Beta-Carotene(A) w/C & E/Min [Prosight] 2 tab PO DAILY 01/17/18 [History] Mirtazapine 7.5 mg PO BEDTIME 01/17/18 [History] Polyethylene Glycol 3350 [MiraLAX] 17 gm PO BID 01/17/18 [History] Ciprofloxacin/Dexamethasone [Ciprodex Otic Susp] 1 drop OT BID PRN 03/07/18 [ History] Clobetasol Propionate [Clobex] 59 ml TP BID PRN 03/07/18 [History] Metoprolol Succinate [Toprol XL 50mg] 50 mg PO DAILY 03/07/18 [History] Triamcinolone Acetonide [Triamcinolone Acetonide 0.1% Crm] 1 applic .XX BID PRN 03/07/18 [History] diphenhydrAMINE [Benadryl] 25 mg PO BID PRN 03/07/18 [History] Acetaminophen [Tylenol Extra Strength] 1 tab PO Q6HR PRN 03/14/18 [History] Furosemide 1 tab PO BID 03/14/18 [History] Ondansetron [Zofran] 1 tab PO Q6HR 03/14/18 [History] acetaZOLAMIDE [Acetazolamide] 2 tab PO BID 03/14/18 [History] Past Medical History HEENT History: Reports: Hard of Hearing, Impaired Vision Other HEENT History: pseudophakia. 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 Possible yeast under breasts and near belly button ( using lotrimin cream for this) - Past Surgical History GI Surgical History: Reports: None Female Surgical History: Reports: Hysterectomy Neurological Surgical History: Reports: Vertebroplasty Social & Family History - Family History Family Medical History: Noncontributory - Caffeine Use Caffeine Use: Reports: Coffee Other Caffeine Use: 1-2 cups coffee daily ED ROS GENERAL - Review of Systems Review Of Systems: See Below Constitutional: Reports: Weakness, Decreased Appetite HEENT: Reports: No Symptoms Respiratory: Reports: Shortness of Breath Cardiovascular: Reports: No Symptoms Endocrine: Reports: Fatigue GI/Abdominal: Reports: No Symptoms : Reports: Flank Pain Musculoskeletal: Reports: Back Pain Skin: Reports: No Symptoms Neurological: Reports: Weakness Psychiatric: Reports: Depression Hematologic/Lymphatic: Reports: No Symptoms Immunologic: Reports: No Symptoms ED EXAM, GENERAL - Physical Exam Exam: See Below Exam Limited By: No Limitations General Appearance: Alert, WD/WN, No Apparent Distress Eye Exam: Bilateral Eye: EOMI, Normal Inspection, PERRL Ears: Normal TMs Nose: Normal Inspection, Normal Mucosa, No Blood Throat/Mouth: Normal Inspection, Normal Lips, Normal Teeth, Normal Gums, Normal Oropharynx, Normal Voice, No Airway Compromise Head: Atraumatic, Normocephalic Neck: Normal Inspection, Supple, Non-Tender, Full Range of Motion Respiratory/Chest: No Respiratory Distress, Lungs Clear, Normal Breath Sounds, No Accessory Muscle Use, Chest Non-Tender Cardiovascular: Normal Peripheral Pulses, Regular Rate, Rhythm, No Edema, No Gallop, No JVD, No Murmur, No Rub Peripheral Pulses: 2+: Posterior Tibial (L), Posterior Tibial (R), Dorsalis Pedis (L), Dorsalis Pedis (R) GI/Abdominal: Normal Bowel Sounds, Soft, Non-Tender, No Organomegaly, No Distention, No Abnormal Bruit, No Mass Back Exam: Normal Inspection, Full Range of Motion Extremities: Pedal Edema Neurological: Alert, Oriented, CN II-XII Intact, Normal Cognition, Normal Gait, Normal Reflexes, No Motor/Sensory Deficits Psychiatric: Normal Affect, Normal Mood Skin Exam: Warm, Dry, Intact, Normal Color, No Rash Lymphatic: No Adenopathy EKG INTERPRETATION EKG Date: 09/16/18 Time: 14:12 Rhythm: NSR Rate (Beats/Min): 82 [place]: LAD-Left [place] Deviation P-Wave: Present QRS: Normal ST-T: Normal QT: Normal Comparison: Change From Previous EKG Course - Orders/Labs/Meds Orders: Active Orders 24 hr Category Date Time Status EKG Documentation Completion [RC] STAT Care 09/16/18 13:53 Ordered Chest 1V Frontal [CR] Stat Exams 09/16/18 13:53 Ordered CBC WITH AUTO DIFF [HEME] Stat Lab 09/16/18 13:53 Ordered COMPREHENSIVE METABOLIC PN,CMP [CHEM] Stat Lab 09/16/18 13:53 Ordered INR,PT,PROTHROMBIN TIME [COAG] Stat Lab 09/16/18 13:53 Ordered MAGNESIUM [CHEM] Stat Lab 09/16/18 13:53 Ordered PRO B-TYPE NATRIUR PEPT,BNPPRO [CHEM] Stat Lab 09/16/18 13:55 Ordered TROPONIN I [CHEM] Stat Lab 09/16/18 13:53 Ordered TSH ULTRASENSITIVE [CHEM] Stat Lab 09/16/18 13:53 Ordered URINALYSIS W/MICROSCOPIC [UA W/MICROSCOPIC] [URIN] Stat Lab 09/16/18 13:58 Ordered Lactated Ringers [Ringers, Lactated] 1,000 ml Med 09/16/18 14:00 Ordered IV ASDIRECTED Sodium Chloride 0.9% [Saline Flush] Med 09/16/18 13:53 Ordered 10 ml FLUSH ASDIRECTED PRN Saline Lock Insert [OM.PC] Routine Oth 09/16/18 13:53 Ordered Medication Orders Lactated Ringer's (Ringers, Lactated) 1,000 mls @ 999 mls/hr IV ASDIRECTED EDI Sodium Chloride (Saline Flush) 10 ml FLUSH ASDIRECTED PRN PRN Reason: Keep Vein Open Meds: Medications Generic Name Dose Route Start Last Admin Trade Name Freq PRN Reason Stop Dose Admin Lactated Ringer's 1,000 mls @ 999 mls/hr 09/16/18 14:00 Ringers, Lactated IV ASDIRECTED EDI Sodium Chloride 10 ml 09/16/18 13:53 Saline Flush FLUSH ASDIRECTED PRN Keep Vein Open Departure - Departure Time of Disposition: 16:05 Disposition: Refer to Observation Condition: Good Clinical Impression: Dehydration, Abnormal renal function - Discharge Information *PRESCRIPTION DRUG MONITORING PROGRAM REVIEWED*: Not Applicable *COPY OF PRESCRIPTION DRUG MONITORING REPORT IN PATIENT MILENA: Not Applicable Referrals: Loli Oliveros DO [Primary Care Provider] - ED Communication - ED Communication Date/Time Date: 09/16/18 Time Called: 15:45 - Discussed Case With (1) Discussed Case With (1): Admitting Provider (Dr. Loli Oliveros contacted regarding patient. Results reviewed. She will admit observation.) - Problem List & Annotations (1) Dehydration SNOMED Code(s): 70626413 Code(s): E86.0 - DEHYDRATION Status: Acute Priority: Medium Current Visit: Yes (2) Abnormal renal function SNOMED Code(s): 92755998 Code(s): N28.9 - DISORDER OF KIDNEY AND URETER, UNSPECIFIED Status: Acute Priority: High Current Visit: Yes - Problem List Review Problem List Initiated/Reviewed/Updated: Yes - My Orders Last 24 Hours: My Active Orders 09/16/18 13:53 EKG Documentation Completion [RC] STAT Chest 1V Frontal [CR] Stat CBC WITH AUTO DIFF [HEME] Stat COMPREHENSIVE METABOLIC PN,CMP [CHEM] Stat INR,PT,PROTHROMBIN TIME [COAG] Stat MAGNESIUM [CHEM] Stat TROPONIN I [CHEM] Stat TSH ULTRASENSITIVE [CHEM] Stat Sodium Chloride 0.9% [Saline Flush] 10 ml FLUSH ASDIRECTED PRN Saline Lock Insert [OM.PC] Routine 09/16/18 13:55 PRO B-TYPE NATRIUR PEPT,BNPPRO [CHEM] Stat 09/16/18 13:58 URINALYSIS W/MICROSCOPIC [UA W/MICROSCOPIC] [URIN] Stat 09/16/18 14:00 Lactated Ringers [Ringers, Lactated] 1,000 ml IV ASDIRECTED - Assessment/Plan Last 24 Hours: My Active Orders 09/16/18 13:53 EKG Documentation Completion [RC] STAT Chest 1V Frontal [CR] Stat CBC WITH AUTO DIFF [HEME] Stat COMPREHENSIVE METABOLIC PN,CMP [CHEM] Stat INR,PT,PROTHROMBIN TIME [COAG] Stat MAGNESIUM [CHEM] Stat TROPONIN I [CHEM] Stat TSH ULTRASENSITIVE [CHEM] Stat Sodium Chloride 0.9% [Saline Flush] 10 ml FLUSH ASDIRECTED PRN Saline Lock Insert [OM.PC] Routine 09/16/18 13:55 PRO B-TYPE NATRIUR PEPT,BNPPRO [CHEM] Stat 09/16/18 13:58 URINALYSIS W/MICROSCOPIC [UA W/MICROSCOPIC] [URIN] Stat 09/16/18 14:00 Lactated Ringers [Ringers, Lactated] 1,000 ml IV ASDIRECTED Assessment:: Dehydration Abnormal kidney function Plan: Admit to observation with Dr. Loli Oliveros to cover
[2018-09-16] MEDS: Lactated Ringers 1,000 ML IV SCH (14:22)
--- NOTE | 2018-09-16 14:39 | CR ---
[id number] RAD/RAD Chest PA or AP 1V EXAM: RAD Chest PA or AP 1V INDICATION: SHORT OF BREATH. COMPARISON: December 2017. DISCUSSION: Advanced changes of COPD are again seen. No pneumonia, effusion, edema, or pneumothorax. Cardiomediastinal silhouette is unchanged in size and contour. IMPRESSION: As above. Bud Garrison MD 09/16/18 1565 Thank you for allowing us to participate in the care of your patient.
[2018-09-16 14:46] LABS: CHLORIDE,CL 96 mmol/L (98-107); SODIUM,NA 135 mmol/L (136-145)
[2018-09-16] MEDS ORDERED: Sodium Chloride 0.9% 1,000 ML IV SCH (16:15)
[2018-09-16] MEDS ORDERED: Albuterol 0.083% 2.5 MG/3 ML Neb Soln INH PRN (17:15)
[2018-09-16] MEDS ORDERED: HYDROmorphone 2 MG Tab PO PRN (17:15)
[2018-09-16] MEDS ORDERED: diphenhydrAMINE 25 MG Cap PO PRN (17:15)
[2018-09-16] MEDS ORDERED: Acetaminophen 500 MG Tab PO PRN (17:15)
[2018-09-16] MEDS ORDERED: Ondansetron 4 MG Tab.DIS PO PRN (17:19)
[2018-09-16] MEDS ORDERED: ALPRAZolam 0.25 MG Tab PO PRN (17:20)
[2018-09-16] MEDS ORDERED: ONDANSETRON PO SCH (18:00)
[2018-09-16] MEDS: HYDROmorphone 2 MG Tab PO PRN (19:20)
[2018-09-16] MEDS: Apixaban 2.5 MG Tab PO SCH (19:23)
[2018-09-16] MEDS: Polyethylene Glycol 3350 Powder 17 GM Packet PO SCH (19:27)
[2018-09-16] MEDS ORDERED: Mirtazapine 15 MG Tab PO SCH (20:00)
[2018-09-16] MEDS: Acetaminophen 325 MG Tab PO PRN (21:54)
--- NOTE | 2018-09-17 00:26 | HP ---
HISTORY OF PRESENT ILLNESS: An 88-year-old seen today for admission after an ER visit for weakness, poor oral intake, back pain, and depression. The patient has been in her normal state of health at assisted living, but had compression fractures and procedures for that on 09/03 to L3-L4. She states that pain has actually been getting better, but she just feels poorly. She sleeps a lot, like 15 hours a day. She is barely eating anything. She does take her Remeron. She does mention she has a family reunion coming up. She seemed to be a little bit more upbeat about that. Otherwise, she lost some of her vision due to some eye problems and a stroke. She has not had any breathing trouble. She otherwise just feels "sick," but denies feeling like stomach ache or feeling like she might throw up. She has chronically been on Dilaudid 2 mg 4 to 5 tablets daily and recently tried some CBD oil. Her daughter wonders if this maybe contributed to her symptoms, so they stopped it. ALLERGIES: Her allergies include penicillin, unknown; tetracycline, hives; Cymbalta, confusion; gabapentin, sleepiness; hydrocodone, rash; tramadol, rash. MEDICATIONS: List reviewed shows albuterol inhaler, Dilaudid 2 mg every 4 hours as needed for pain, Remeron 7.5 mg at bedtime, Ativan 0.5 mg for sleep, Lasix 20 mg daily, calcium 600 daily, levothyroxine 25 mcg daily, Norvasc 5 mg daily, Eliquis 2.5 b.i.d., Toprol 50 mg daily, MiraLAX daily, triamcinolone cream, Benadryl as needed, Senna-S p.r.n. PAST MEDICAL HISTORY: 1. Does include some chronic kidney disease stage 2, but most recent creatinine less than 1. 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 2. Osteoporosis, not on any treatments. 3. Bronchitis. 4. Chronic continuous use of opioids. 5. Coronary artery disease with a stent many years ago for angina. 6. Essential hypertension; hypothyroidism; oxygen dependent at night, 2.5 L. 7. Paroxysmal atrial fibrillation. PAST SURGICAL HISTORY: She is status post multiple vertebroplasties. Otherwise, multiple eye surgeries like right eye for a shunt, sounds like she had a surgery on her arm in [place], ruptured disk and spine surgery in 1971, multiple eye injections of Avastin, hysterectomy, cholecystectomy, cataract surgery, appendectomy. SOCIAL HISTORY: The patient is . She is a nonsmoker. Nondrinker. She lives at [facility]. Had 6 children. FAMILY HISTORY: Both parents are . REVIEW OF SYSTEMS: General: The patient has lost weight. She mentions she is down to like 137 pounds. She used to be 150. No fever, no chills. HEENT: No sore throat. She has a dry mouth, which she attributes to some trouble swallowing, but denies food getting stuck in her throat. Cardiac: No chest pain, no palpitations. Respiratory: No cough. No wheezing. No shortness of breath. Abdominal: No abdominal pain. Otherwise, all systems reviewed and found to be negative unless otherwise stated in the HPI. PHYSICAL EXAMINATION: Vital Signs: Weight 62.5 kg. General: No acute distress. Heart: Regularly irregular. Lungs: Sounds are clear to auscultation bilaterally without crackles or wheezes. Abdomen: Has positive bowel sounds. Soft and nontender. Extremities: Warm and dry. No edema. Mental Status: She is alert. She is orientated x3. Psych: She does appear down and depressed. RADIOLOGIC DATA: Chest x-ray does not show any abnormalities on her lungs. LABORATORY DATA: Her lab work did show white count 6.4, hemoglobin 15.3, platelets 256. INR 1. Sodium 135, potassium 4.0, chloride 96, bicarb 30, BUN 21, creatinine 1.2, glucose 176, magnesium 1.9, iron 36, TIBC 304, percent saturation 11.8, ferritin 112, bilirubin 0.6, AST 18, ALT 15, alkaline phosphatase 147. Troponin negative. ProBNP 727. Albumin 3.7. UA negative, 0 to 5 wbc's and rbc's. ASSESSMENT AND PLAN: 1. Weakness and dehydration, really a general failure to thrive. 2. Depression, ongoing due to recent health problems with history of anxiety. 3. Chronic kidney disease. Creatinine up slightly from baseline. 4. Chronic obstructive pulmonary disease, stable, but on oxygen at night. 5. Coronary artery disease, stable without angina. 6. Osteoporosis and multiple compression fractures. 7. Mild iron deficiency. 8. Paroxysmal atrial fibrillation, on anticoagulation. PLAN: At this point, the patient will be admitted for observation status. We will continue some IV fluids with some lactated Ringer overnight. We will get her up, work with therapies. We will have Cement Finisher Helper see her. We will see if she is stable to be discharged back to assisted living tomorrow. We will hold off on any medication adjustments, but most likely we will increase the Remeron and start some iron supplements on discharge. We will do some blood sugar checks as well as she has had some shakiness per her daughter to ensure she is not having any hypoglycemia. We will have some Xanax available for her as well p.r.n. as this could be anxiety contributing too. We will continue her home medications for blood pressure. The patient is agreeable to this plan. She is code level 3, no CPR. For DVT prophylaxis, she is fully anticoagulated with the Eliquis. MKA: 09/16/2018 17:30:42 MODL: 09/17/2018 00:18:58 /[id number] MARBIN
[2018-09-17] MEDS: Lactated Ringers 1,000 ML IV SCH (02:02)
[2018-09-17] MEDS: HYDROmorphone 2 MG Tab PO PRN (03:02)
[2018-09-17] MEDS ORDERED: Levothyroxine 25 MCG Tab PO SCH (08:00)
[2018-09-17] MEDS ORDERED: amLODIPine 10 MG Tab PO SCH ×2 (08:00)
[2018-09-17] MEDS ORDERED: Metoprolol Succinate 50 MG Tab.ER PO SCH (08:00)
[2018-09-17] MEDS ORDERED: HYDROMORPHONE 2 MG PO PRN ×2 (09:09→11:26)
[2018-09-17] MEDS: AMLODIPINE 5 MG PO SCH (09:41)
[2018-09-17] MEDS: LEVOTHYROXINE 25 MCG PO SCH (09:42)
[2018-09-17] MEDS: Polyethylene Glycol 3350 Powder 17 GM Packet PO SCH ×2 (09:42→20:11)
[2018-09-17] MEDS: APIXABAN 2.5 MG PO SCH ×2 (09:42→20:05)
[2018-09-17] MEDS: METOPROLOL 50 MG PO SCH ×2 (09:42→20:06)
[2018-09-17] MEDS: Acetaminophen 325 MG Tab PO PRN (09:43)
[2018-09-17] MEDS: Apixaban 2.5 MG Tab PO SCH (09:44)
[2018-09-17] MEDS: PREDNISOLONE ACETATE 1% EYERT SCH ×4 (11:09→20:04)
[2018-09-17] MEDS: PRESERVISION PO SCH (11:09)
[2018-09-17] MEDS: HYDROMORPHONE 2 MG PO PRN ×3 (14:08→23:05)
--- NOTE | 2018-09-17 17:18 | CR ---
[id number] RAD/RAD Lumbar Spine 2-3V EXAM: AP AND LATERAL LUMBAR SPINE. INDICATION: Back pain COMPARISON: Correlation is made with the MRI of August 31, 2018. FINDINGS: Vertebroplasty has been performed at L5, L4, L3, L2, and T12. A compression deformity of L1 again is seen. IMPRESSION: NO NEW FINDINGS OBVIOUS. Eligio Giordano MD 09/17/18 [id number] Thank you for allowing us to participate in the care of your patient.
[2018-09-17] MEDS ORDERED: Mirtazapine 15 MG Tab**OWN MED PO SCH (20:00)
--- NOTE | 2018-09-17 22:42 | PCM.PN ---
- General Info Date of Service: 09/17/18 Admission Dx/Problem (Free Text): Patient having more back pain today getting 2 mg of Dilaudid her regular home dose was up to 5 x a day due to recent compression fractures that were fixed. She denies any trouble breathing, no chest pain. Did get fluids overnight and labs improved. She still feels week and nearly fell getting to the bathroom by her report. Was up to urinate 3 x last night. Did also feel shaky and didn't sleep well but nursing felt that she did rest ok. She denies stomach pain but only ate a few bites of her breakfast. Functional Status: Reports: Tolerating Diet, Urinating - Review of Systems General: Reports: Weakness, Fatigue. Denies: Fever HEENT: Reports: No Symptoms Pulmonary: Reports: No Symptoms Cardiovascular: Reports: No Symptoms Gastrointestinal: Reports: No Symptoms Genitourinary: Reports: Frequency. Denies: Dysuria Musculoskeletal: Reports: Back Pain Neurological: Reports: No Symptoms Psychiatric: Reports: Depression - Patient Data Vitals - Most Recent: Last Vital Signs Temp 98.9 F 09/17/18 17:32 Pulse 84 09/17/18 17:32 Resp 20 09/17/18 05:44 BP 151/84 H 09/17/18 17:32 Pulse Ox 93 L 09/17/18 17:32 Weight - Most Recent: 62.505 kg I&O - Last 24 Hours: Intake & Output 09/17/18 09/17/18 09/17/18 06:59 14:59 22:59 Intake Total 1560 300 486 Output Total 1000 400 Balance 560 300 86 Lab Results Last 24 Hours: Laboratory Results - last 24 hr 09/17/18 09/17/18 09/17/18 Range/Units 08:30 08:30 20:00 WBC 6.1 (4.0-10.0) x10^3/uL RBC 4.87 (4.00-5.50) x10^6/uL Hgb 14.3 (12.0-16.0) g/dL Hct 44.4 (33.0-47.0) % MCV 91.2 (78.0-93.0) fL MCH 29.4 (26.0-32.0) pg MCHC 32.2 (32.0-36.0) g/dL RDW Coeff of Grayson 16.5 H (10.0-15.0) % Plt Count 250 (130-400) x10^3/uL Neut % (Auto) 59.6 (50.0-80.0) % Lymph % (Auto) 27.7 (25.0-50.0) % Sully % (Auto) 9.4 (2.0-11.0) % Eos % (Auto) 2.8 (0.0-4.0) % Baso % (Auto) 0.5 (0.2-1.2) % Sodium 138 (136-145) mmol/L Potassium 4.0 (3.5-5.1) mmol/L Chloride 100 (98-107) mmol/L Carbon Dioxide 30 (21-32) mmol/L Anion Gap 12.0 (10-20) mmol/L BUN 15 (7-18) mg/dL Creatinine 1.0 (0.55-1.02) mg/dL Est Cr Clr Drug Dosing 37.63 mL/min Estimated GFR (MDRD) 52 Glucose 126 H (74-106) mg/dL POC Glucose 143 H (74-106) mg/dL Calcium 9.4 (8.5-10.1) mg/dL Med Orders - Current: Current Medications Acetaminophen (Tylenol) 650 mg PO Q4H PRN PRN Reason: Pain (Mild 1-3)/fever Last Admin: 09/17/18 09:43 Dose: 650 mg Albuterol (Proventil Neb Soln) 2.5 mg INH Q4H PRN PRN Reason: Wheezing Alprazolam (Xanax) 0.25 mg PO Q4H PRN PRN Reason: Anxiety Diphenhydramine HCl (Benadryl) 25 mg PO BID PRN PRN Reason: Itching Mirtazapine (Remeron) 15 mg PO BEDTIME [facility] Last Admin: 09/17/18 20:09 Dose: 15 mg Amlodipine. 5mg 1 each PO DAILY [facility] Last Admin: 09/17/18 09:41 Dose: 1 each Apixaban. 2.5mg 1 tab PO BID [facility] Last Admin: 09/17/18 20:05 Dose: 1 tab Levothyroxine. 25mcg 1 each PO DAILY [facility] Last Admin: 09/17/18 09:42 Dose: 1 each Metoprolol.Er. 50mg 1 each PO BID [facility] Last Admin: 09/17/18 20:06 Dose: 1 each Prednisolone.Acetate (1% (Shake Well)) 1 drop EYERT QID [facility] Last Admin: 09/17/18 20:04 Dose: 1 drop Preservision (Own (Supply)) 2 tab PO DAILY [facility] Last Admin: 09/17/18 11:09 Dose: 2 tab Hydromorphone. 2mg ( (Own Supply)) 0 tab PO Q4H PRN PRN Reason: severe pain Last Admin: 09/17/18 18:15 Dose: 2 tab Ondansetron HCl (Zofran Odt) 4 mg PO Q4H PRN PRN Reason: nausea, able to take PO Polyethylene Glycol (Miralax) 17 gm PO BID [facility] Last Admin: 09/17/18 20:11 Dose: Not Given Senna/Docusate Sodium (Senna Plus) 1 tab PO BID PRN PRN Reason: Constipation Sodium Chloride (Saline Flush) 10 ml FLUSH ASDIRECTED PRN PRN Reason: Keep Vein Open Last Admin: 09/16/18 16:59 Dose: 10 ml Discontinued Medications Acetaminophen (Tylenol Extra Strength) 500 mg PO Q6HR PRN PRN Reason: Pain Amlodipine Besylate (Norvasc) 10 mg PO DAILY [facility] Apixaban (Eliquis) 2.5 mg PO BID [facility] Last Admin: 09/17/18 09:44 Dose: Not Given Hydromorphone HCl (Dilaudid) 2 mg PO QID PRN PRN Reason: Pain (moderate 4-6) Hydromorphone HCl (Dilaudid) 2 mg PO Q4H PRN PRN Reason: Pain (moderate 4-6) Last Admin: 09/17/18 03:02 Dose: 2 mg Lactated Ringer's (Ringers, Lactated) 1,000 mls @ 100 mls/hr IV ASDIRECTED [facility] Last Admin: 09/17/18 02:02 Dose: 999 mls/hr Sodium Chloride (Normal Saline) 1,000 mls @ 100 mls/hr IV ASDIRECTED [facility] Mirtazapine (Remeron) 7.5 mg PO BEDTIME [facility] Last Admin: 09/16/18 19:23 Dose: 7.5 mg Non-Formulary Medication (Ondansetron) 1 tab PO Q6HR [facility] Last Admin: 09/16/18 20:16 Dose: Not Given Mirtazapine 7.5mg 1 each PO BEDTIME [facility] Hydromorphone. 2mg 1 each PO Q4H PRN PRN Reason: severe pain Last Admin: 09/17/18 09:41 Dose: 1 each - Exam General: Alert, Oriented Neck: Supple, Trachea Midline, No JVD Lungs: Clear to Auscultation, Normal Respiratory Effort Cardiovascular: Regular Rate, Regular Rhythm GI/Abdominal Exam: Normal Bowel Sounds, Soft, Non-Tender, No Organomegaly Back Exam: Normal Inspection, Vertebral Tenderness Extremities: Normal Inspection, No Pedal Edema Neurological: No New Focal Deficit Psy/Mental Status: Alert, Normal Affect, Depressed - Problem List & Annotations (1) Depression SNOMED Code(s): 25556668 Code(s): F32.9 - MAJOR DEPRESSIVE DISORDER, SINGLE EPISODE, UNSPECIFIED Status: Chronic Priority: High Current Visit: Yes Qualifiers: Depression Type: major depressive disorder Major depression recurrence: recurrent Active/Remission status: currently active Major depression episode severity: severe Psychotic features: without psychotic features Qualified Code(s): F33.2 - Major depressive disorder, recurrent severe without psychotic features (2) Osteoporosis SNOMED Code(s): 65624405 Code(s): M81.0 - AGE-RELATED OSTEOPOROSIS W/O CURRENT PATHOLOGICAL FRACTURE Status: Chronic Priority: Medium Current Visit: Yes Qualifiers: Osteoporosis type: age-related Presence of current pathological fracture: with current pathological fracture Encounter type: subsequent encounter Fracture healing: with routine healing Qualified Code(s): M80.00XD - Age- related osteoporosis with current pathological fracture, unspecified site, subsequent encounter for fracture with routine healing (3) Dehydration SNOMED Code(s): 37443301 Code(s): E86.0 - DEHYDRATION Status: Acute Priority: Medium Current Visit: Yes (4) Chronic kidney disease SNOMED Code(s): 747165924 Code(s): N18.9 - CHRONIC KIDNEY DISEASE, UNSPECIFIED Status: Chronic Priority: Medium Current Visit: No Qualifiers: Chronic kidney disease stage: stage 2 (mild) Qualified Code(s): N18.2 - Chronic kidney disease, stage 2 (mild) (5) COPD, Mild chronic obstructive pulmonary disease SNOMED Code(s): 276026003 Code(s): J44.9 - CHRONIC OBSTRUCTIVE PULMONARY DISEASE, UNSPECIFIED Status : Chronic Priority: Medium Current Visit: No (6) Chronic back pain SNOMED Code(s): 840899157 Code(s): M54.9 - DORSALGIA, UNSPECIFIED; G89.29 - OTHER CHRONIC PAIN Status : Chronic Priority: Medium Current Visit: Yes (7) Coronary arteriosclerosis, CAD SNOMED Code(s): 32081028 Code(s): I25.10 - ATHSCL HEART DISEASE OF [place] CORONARY ARTERY W/O ANG PCTRS Status: Chronic Priority: Medium Current Visit: No (8) HTN, Essential hypertension SNOMED Code(s): 61158175 Code(s): I10 - ESSENTIAL (PRIMARY) HYPERTENSION Status: Chronic Priority : Medium Current Visit: Yes - Problem List Review Problem List Initiated/Reviewed/Updated: Yes - My Orders Last 24 Hours: My Active Orders 09/17/18 09:05 Apixaban. 2.5mg 1 tab PO BID 09/17/18 09:06 Levothyroxine. 1 each PO DAILY Metoprolol.Er. 50mg 1 each PO BID 09/17/18 09:08 Amlodipine. 5mg 1 each PO DAILY 09/17/18 10:47 Prednisolone.Acetate 1% 1 drop EYERT QID 09/17/18 10:55 Preservision 2 tab PO DAILY 09/17/18 11:41 Hydromorphone. 2mg 0 tab PO Q4H PRN 09/17/18 17:12 Patient Status Discharge Transfer [TRANSFER] Routine 09/17/18 20:00 Mirtazapine [Remeron] 15 mg PO BEDTIME - Assessment Assessment:: Dehydration and weakness Failure to thrive due to severe Depression Shaking probably related to some anxiety or even dependence on opioids renal insufficiency with CKD improved with IV fluids Cr at baseline Essential HTN cont home meds iron deficiency Plan: See PT and OT today consumer services advisor consult patient may be a candidate for self pay swing Continue observation Increase dilaudid to 2-4 mg doses stop IV fluids Continue Eliquis for stroke prevent Increase Remeron to 15 mg daily prn xanax available I will wait on iron supplements since it can cause GI side effects May leave with family when on swing bed to visit at a reunion this weekend
[2018-09-18 06:29] VITALS: BP 135/69
[2018-09-18] MEDS: APIXABAN 2.5 MG PO SCH (07:54)
[2018-09-18] MEDS: AMLODIPINE 5 MG PO SCH (07:54)
[2018-09-18] MEDS: METOPROLOL 50 MG PO SCH (07:55)
[2018-09-18] MEDS: LEVOTHYROXINE 25 MCG PO SCH (07:55)
[2018-09-18] MEDS: PRESERVISION PO SCH (07:56)
[2018-09-18] MEDS: Polyethylene Glycol 3350 Powder 17 GM Packet PO SCH (07:56)
[2018-09-18] MEDS: PREDNISOLONE ACETATE 1% EYERT SCH (07:56)
--- NOTE | 2018-09-18 10:24 | PCM.DCSUM1 ---
Discharge Summary - Hospital Course Brief History: Patient was admitted 3 days ago with weakness, poor oral intake, dehydration, chronic back pain, depression, failure to thrive. She has continued to show little progression. She is requiring full support and assistance with a dima lift at times. She at times will be able to ambulate with assistance of 1 but is very inconsistant. She continues to remain incontinent and has chronic back pain concerns. She does not feel she is safe to go home and family is in agreeance. The patient will be admitted to [facility] pain swing to help with muscle strenghting. Diagnosis: Stroke: No - Discharge Data Discharge Date: 09/18/18 Discharge Disposition: DC/Tfer W/I Hosp To Swing 61 Condition: Fair - Discharge Diagnosis/Problem(s) (1) Failure to thrive SNOMED Code(s): 70153588 ICD Code: [id number] - Status: Acute Current Visit: Yes (2) Dehydration SNOMED Code(s): 84489550 ICD Code: E86.0 - DEHYDRATION Status: Acute Priority: Medium Current Visit: Yes (3) Chronic back pain SNOMED Code(s): 534013940 ICD Code: M54.9 - DORSALGIA, UNSPECIFIED; G89.29 - OTHER CHRONIC PAIN Status: Chronic Priority: Medium Current Visit: Yes (4) Depression SNOMED Code(s): 44665464 ICD Code: F32.9 - MAJOR DEPRESSIVE DISORDER, SINGLE EPISODE, UNSPECIFIED Status: Chronic Priority: High Current Visit: Yes Qualifiers: Depression Type: major depressive disorder Major depression recurrence: recurrent Active/Remission status: currently active Major depression episode severity: severe Psychotic features: without psychotic features Qualified Code(s): F33.2 - Major depressive disorder, recurrent severe without psychotic features - Patient Summary/Data Consults: Consultations 09/16/18 17:18 OT Evaluation and Treatment [CONS] Routine PT Evaluation and Treatment [CONS] Routine 09/16/18 17:21 Consult to Case Management/Boiler Reliner [CONS] Routine - Discharge Plan *PRESCRIPTION DRUG MONITORING PROGRAM REVIEWED*: Not Applicable *COPY OF PRESCRIPTION DRUG MONITORING REPORT IN PATIENT MILENA: Not Applicable Home Medications: Home Meds HYDROmorphone [Dilaudid] 2 mg PO Q4HR PRN 07/01/17 [History] Levothyroxine Sodium [Synthroid] 25 mcg PO DAILY 07/01/17 [History] Sennosides/Docusate Sodium [Senna-S Tablet] 1 tab PO BID PRN 07/01/17 [History] Mirtazapine 7.5 mg PO BEDTIME 01/17/18 [History] Polyethylene Glycol 3350 [MiraLAX] 17 gm PO BID 01/17/18 [History] Triamcinolone Acetonide [Triamcinolone Acetonide 0.1% Crm] 1 applic TOP BID PRN 03/07/18 [History] diphenhydrAMINE [Benadryl] 25 mg PO BID PRN MDD 4 tabs per day 03/07/18 [History ] Furosemide 20 mg PO DAILY 03/14/18 [History] Albuterol [Ventolin HFA] 2 puff INH Q4H PRN 09/16/18 [History] Apixaban [Eliquis] 2.5 mg PO BID 09/16/18 [History] Doxepin [Doxepin HCl] 25 mg PO Q6H PRN 09/16/18 [History] Metoprolol Succinate [Toprol XL 100mg] 50 mg PO DAILY 09/16/18 [History] Prednisolone Acetate/Pf [Prednisolone Acet 1% Eye Drop] 1 drop EYERT QID [History] Vit C/E/Zn/Coppr/Lutein/Zeaxan [Preservision Areds 2 Softgel] 2 cap PO DAILY [History] amLODIPine [Norvasc] 5 mg PO DAILY 09/16/18 [History] Bisacodyl [Dulcolax] 5 - 10 mg PO DAILY PRN 09/17/18 [History] Ciprofloxacin/Dexamethasone [Ciprodex Otic Susp] 5 drop EARLF ASDIRECTED PRN [History] Clobetasol Propionate 1 spray TOP BID PRN 09/17/18 [History] Magnesium Hydroxide [Milk of Magnesia] 30 ml PO DAILY PRN 09/17/18 [History] - Discharge Summary/Plan Comment DC Time >30 min.: Yes (discharge re-admit self pay swing) Discharge Summary/Plan Comment: Please use this H&P as admission H&P to swing bed please - General Info Date of Service: 09/18/18 Admission Dx/Problem (Free Text: Day 1: Patient was seen and admitted from the ER for weakness, poor oral intake , back pain, and depression. Pt was diagnosed and underwent a procedure on 09/03 for compression fracture. Since then she had been sleeping greater than 15 hours , eating poorly, and not acting her normal self. Patient was admitted observation for the above reason. IV fluids were given, PT/OT consult completed , and pain control was provided. Day 2: Patient having more back pain today getting 2 mg of Dilaudid her regular home dose was up to 5 x a day due to recent compression fractures that were fixed. She denies any trouble breathing, no chest pain. Did get fluids overnight and labs improved. She still feels week and nearly fell getting to the bathroom by her report. Was up to urinate 3 x last night. Did also feel shaky and didn't sleep well but nursing felt that she did rest ok. She denies stomach pain but only ate a few bites of her breakfast. Day 3: Patient continues to struggle with her chronic back pain. She also recently had compression fractures which are increasing her pain and need for further medication management. Labs show no acute findings, eating and drinking well, urinating/bowel movement without difficulty- has some bladder incontinence. VSS. Patient and family do not feel she is strong enough to return to her home. Patient and family are willing to be admitted to self pay swing for hopes for further improvement of the weakness. Functional Status: Reports: Ambulating (intermittent. needing 1-3 person assist at times for safety ) - Review of Systems General: Reports: No Symptoms HEENT: Reports: No Symptoms Pulmonary: Reports: No Symptoms Cardiovascular: Reports: No Symptoms Gastrointestinal: Reports: No Symptoms Genitourinary: Reports: No Symptoms Musculoskeletal: Reports: Neck Pain, Back Pain Skin: Reports: No Symptoms Neurological: Reports: Difficulty Walking, Weakness, Gait Disturbance Psychiatric: Reports: Confusion - Patient Data Vitals - Most Recent: Last Vital Signs Temp 36.6 C 09/18/18 06:00 Pulse 85 09/18/18 06:00 Resp 16 09/18/18 06:00 BP 135/69 09/18/18 06:00 Pulse Ox 92 L 09/18/18 06:00 Weight - Most Recent: 62.505 kg I&O - Last 24 hours: Intake & Output 09/17/18 09/18/18 09/18/18 22:59 06:59 14:59 Intake Total 486 180 Output Total 400 Balance 86 180 Lab Results - Last 24 hrs: Laboratory Results - last 24 hr 09/16/18 09/17/18 09/17/18 Range/Units 20:39 05:50 11:21 POC Glucose 176 H 95 110 H (74-106) mg/dL 09/17/18 Range/Units 20:00 POC Glucose 143 H (74-106) mg/dL Med Orders - Current: Current Medications Acetaminophen (Tylenol) 650 mg PO Q4H PRN PRN Reason: Pain (Mild 1-3)/fever Last Admin: 09/17/18 09:43 Dose: 650 mg Albuterol (Proventil Neb Soln) 2.5 mg INH Q4H PRN PRN Reason: Wheezing Alprazolam (Xanax) 0.25 mg PO Q4H PRN PRN Reason: Anxiety Last Admin: 09/18/18 01:48 Dose: 0.25 mg Diphenhydramine HCl (Benadryl) 25 mg PO BID PRN PRN Reason: Itching Mirtazapine (Remeron) 15 mg PO BEDTIME [facility] Last Admin: 09/17/18 20:09 Dose: 15 mg Amlodipine. 5mg 1 each PO DAILY [facility] Last Admin: 09/18/18 07:54 Dose: 1 each Apixaban. 2.5mg 1 tab PO BID [facility] Last Admin: 09/18/18 07:54 Dose: 1 tab Levothyroxine. 25mcg 1 each PO DAILY [facility] Last Admin: 09/18/18 07:55 Dose: 1 each Metoprolol.Er. 50mg 1 each PO BID [facility] Last Admin: 09/18/18 07:55 Dose: 1 each Prednisolone.Acetate (1% (Shake Well)) 1 drop EYERT QID [facility] Last Admin: 09/18/18 07:56 Dose: 1 drop Preservision (Own (Supply)) 2 tab PO DAILY [facility] Last Admin: 09/18/18 07:56 Dose: 2 tab Hydromorphone. 2mg ( (Own Supply)) 0 tab PO Q4H PRN PRN Reason: severe pain Last Admin: 09/17/18 23:05 Dose: 2 tab Ondansetron HCl (Zofran Odt) 4 mg PO Q4H PRN PRN Reason: nausea, able to take PO Polyethylene Glycol (Miralax) 17 gm PO BID [facility] Last Admin: 09/18/18 07:56 Dose: 17 gm Senna/Docusate Sodium (Senna Plus) 1 tab PO BID PRN PRN Reason: Constipation Sodium Chloride (Saline Flush) 10 ml FLUSH ASDIRECTED PRN PRN Reason: Keep Vein Open Last Admin: 09/16/18 16:59 Dose: 10 ml Discontinued Medications Acetaminophen (Tylenol Extra Strength) 500 mg PO Q6HR PRN PRN Reason: Pain Amlodipine Besylate (Norvasc) 10 mg PO DAILY [facility] Apixaban (Eliquis) 2.5 mg PO BID [facility] Last Admin: 09/17/18 09:44 Dose: Not Given Hydromorphone HCl (Dilaudid) 2 mg PO QID PRN PRN Reason: Pain (moderate 4-6) Hydromorphone HCl (Dilaudid) 2 mg PO Q4H PRN PRN Reason: Pain (moderate 4-6) Last Admin: 09/17/18 03:02 Dose: 2 mg Lactated Ringer's (Ringers, Lactated) 1,000 mls @ 100 mls/hr IV ASDIRECTED [facility] Last Admin: 09/17/18 02:02 Dose: 999 mls/hr Sodium Chloride (Normal Saline) 1,000 mls @ 100 mls/hr IV ASDIRECTED [facility] Mirtazapine (Remeron) 7.5 mg PO BEDTIME [facility] Last Admin: 09/16/18 19:23 Dose: 7.5 mg Non-Formulary Medication (Ondansetron) 1 tab PO Q6HR [facility] Last Admin: 09/16/18 20:16 Dose: Not Given Mirtazapine 7.5mg 1 each PO BEDTIME [facility] Hydromorphone. 2mg 1 each PO Q4H PRN PRN Reason: severe pain Last Admin: 09/17/18 09:41 Dose: 1 each - Exam General: Reports: Cooperative, No Acute Distress HEENT: Reports: Pupils Equal, Pupils Reactive Neck: Reports: Supple Lungs: Reports: Clear to Auscultation, Normal Respiratory Effort Cardiovascular: Reports: Regular Rate, Regular Rhythm GI/Abdominal Exam: Normal Bowel Sounds, Soft, Non-Tender Back Exam: Reports: Other (chronic back pain ) Skin: Reports: Warm, Dry, Intact Neurological: Reports: Other (weakness) Psy/Mental Status: Reports: Normal Affect, Normal Mood
== END 2018-09-18 10:30 | disposition swing bed (61) ==
LOC: VM.ED 13:24 → VM.MS 15:43
PROVIDERS: ADMIT Internal Medicine; ATTEND Internal Medicine
DX: R53.1 Weakness (principal); E86.0 Dehydration; R62.7 Adult failure to thrive; G89.29 Other chronic pain; M54.9 Dorsalgia, unspecified; F33.2 Major depressive disorder, recurrent severe without psychotic features; F41.9 Anxiety disorder, unspecified; I25.10 Atherosclerotic heart disease of native coronary artery without angina pectoris; I48.0 Paroxysmal atrial fibrillation; I12.9 Hypertensive chronic kidney disease with stage 1 through stage 4 chronic kidney disease, or unspecified chronic kidney disease; N18.2 Chronic kidney disease, stage 2 (mild); I69.998 Other sequelae following unspecified cerebrovascular disease; H53.8 Other visual disturbances; E61.1 Iron deficiency; E03.9 Hypothyroidism, unspecified; J44.9 Chronic obstructive pulmonary disease, unspecified; M81.0 Age-related osteoporosis without current pathological fracture; Z88.0 Allergy status to penicillin; Z88.1 Allergy status to other antibiotic agents; Z88.5 Allergy status to narcotic agent; Z88.8 Allergy status to other drugs, medicaments and biological substances; Z99.81 Dependence on supplemental oxygen; Z95.5 Presence of coronary angioplasty implant and graft; Z79.01 Long term (current) use of anticoagulants; Z79.899 Other long term (current) drug therapy
CPT/HCPCS: 36415; 71045; 72100; 80048; 80053; 81001; 82728; 82962; 83540; 83550; 83735; 83880; 84443; 84484; 85025; 85610; 93005; 93010; 96360; 96361; 97161; 97165; 99284; 99285; A9270; J7120; G0378

== ENCOUNTER 2018-09-18 10:30 | Inpatient (IN) | payer BC, MEDICARE ==
[2018-09-18] MEDS ORDERED: Ondansetron 4 MG Tab.DIS PO PRN (11:36)
[2018-09-18] MEDS ORDERED: Albuterol 0.083% 2.5 MG/3 ML Neb Soln INH PRN (11:36)
[2018-09-18] MEDS ORDERED: diphenhydrAMINE 25 MG Cap PO PRN (11:36)
[2018-09-18] MEDS ORDERED: Acetaminophen 325 MG Tab PO PRN (11:36)
[2018-09-18] MEDS ORDERED: ALPRAZolam 0.25 MG Tab PO PRN (11:36)
[2018-09-18] MEDS ORDERED: Sodium Chloride 0.9% 10 ML Syringe FLUSH PRN (11:36)
[2018-09-18] MEDS: HYDROMORPHONE 2 MG PO PRN ×2 (12:30→17:17)
[2018-09-18] MEDS: PREDNISOLONE ACETATE 1% EYERT SCH ×3 (14:09→19:51)
[2018-09-18] MEDS: METOPROLOL 100 MG PO SCH (19:50)
[2018-09-18] MEDS: MIRTAZAPINE 7.5 MG PO SCH (19:51)
[2018-09-18] MEDS: Polyethylene Glycol 3350 Powder 17 GM Packet PO SCH (19:52)
[2018-09-18] MEDS ORDERED: Mirtazapine 15 MG Tab PO SCH (20:00)
[2018-09-19] MEDS: PRESERVISION PO SCH (07:14)
[2018-09-19] MEDS: Polyethylene Glycol 3350 Powder 17 GM Packet PO SCH ×2 (07:14→20:15)
[2018-09-19] MEDS: PREDNISOLONE ACETATE 1% EYERT SCH ×4 (07:14→20:14)
[2018-09-19] MEDS: METOPROLOL 100 MG PO SCH ×2 (07:14→20:14)
[2018-09-19] MEDS: AMLODIPINE 5 MG PO SCH (07:15)
[2018-09-19] MEDS: HYDROMORPHONE 2 MG PO PRN ×3 (11:37→22:30)
[2018-09-19] MEDS: MIRTAZAPINE 7.5 MG PO SCH (20:15)
[2018-09-20] MEDS: METOPROLOL 100 MG PO SCH ×2 (07:40→20:33)
[2018-09-20] MEDS: Polyethylene Glycol 3350 Powder 17 GM Packet PO SCH ×2 (07:40→20:34)
[2018-09-20] MEDS: AMLODIPINE 5 MG PO SCH (07:40)
[2018-09-20] MEDS: HYDROMORPHONE 2 MG PO PRN ×3 (07:41→20:34)
[2018-09-20] MEDS: PRESERVISION PO SCH (07:41)
[2018-09-20] MEDS: PREDNISOLONE ACETATE 1% EYERT SCH ×4 (07:41→20:57)
--- NOTE | 2018-09-20 14:52 | CR ---
[id number] RAD/RAD Pelvis 1-2V EXAM: SINGLE VIEW PELVIS. INDICATION: PAIN. COMPARISON: None. DISCUSSION: No fracture, dislocation or other osseous abnormality. Generalized osseous demineralization. Mild degenerative changes of the hips bilaterally. Mild degenerative changes of these SI joints bilaterally. Post surgical changes following multiple kyphoplasty is are partially identified. Vascular calcifications. IMPRESSION: 1. NO DEFINITE ACUTE OSSEOUS ABNORMALITY ON THE SINGLE VIEW OF THE PELVIS. Jaspal Mathur DO 09/20/18 [id number] Thank you for allowing us to participate in the care of your patient.
--- NOTE | 2018-09-20 14:53 | CR ---
[id number] RAD/RAD Sacrum EXAM: 3 VIEWS SACRUM. INDICATION: PAIN. COMPARISON: None. DISCUSSION: No fracture, dislocation or other acute osseous abnormality. Degenerative changes involving the visualized lower lumbar spine. Additionally there are degenerative changes of the hips bilaterally, SI joints and pubic symphysis. IMPRESSION: 1. NO DEFINITE ACUTE OSSEOUS ABNORMALITY. Jaspal Mathur DO 09/20/18 [id number] Thank you for allowing us to participate in the care of your patient.
--- NOTE | 2018-09-20 16:41 | PN ---
Progress Note for LEO PERSAUD Date: 09/20/2018 Room #: VM.214 SUBJECTIVE: This is an 88-year-old on self-pay swing bed transitioned over on Thursday due to generalized weakness, poor ambulation, dehydration, and depression. The patient did get some IV fluids. She did get some company over the weekend. Nursing have tried to encourage her to get dressed to go down to lunch. She is eating maybe 50% of her meals. She tells me she just does not feel good. We had increased her Remeron up to 15 mg daily. We had also continued her scheduled hydrocodone 2 to 4 mg every 4 hours as needed for severe pain. We did some lumbar x-rays on Thursday, but no new fractures were found. Now, she feels like the pain is lower down like in her pelvis. She denies any recent fall. She is not having any trouble breathing. OBJECTIVE: Vital Signs: Her temperature is 98, pulse 85, blood pressure 158/85, respiratory rate 20, O2 of 92% on room air. General: She is in no acute distress. Heart: Regular rate and rhythm. Lungs: Lung sounds are clear to auscultation bilaterally without crackles or wheezes. Extremities: Warm and dry. No edema. Mental Status: She is alert. She is oriented. She did not initially recognize me, but does have some vision changes. Otherwise, her mood is depressed. She appears down. ASSESSMENT: 1. Generalized failure to thrive, some dehydration due to poor oral intake. Intake has picked up slightly. 2. Essential hypertension, not well controlled. We will hold off on increasing the beta-ruddy as it could worsen her depression. We will increase Norvasc to 7.5 daily. 3. Osteoporosis with multiple previous compression fractures, not on any treatments. 4. Sacral pain. We will get some pelvic and sacral x-rays today to rule out fracture. 5. Chronic continuous use of opioids. This could be contributing somewhat to her depression. She gets quite anxious without them, but she does have real pain related to compression fractures. 6. Coronary artery disease with remote history of stenting. 7. Paroxysmal atrial fibrillation. She is on anticoagulation. 8. Chronic kidney disease stage 2, back at baseline with fluids. PLAN: At this point, the patient will continue on swing bed cares for further therapies to assist with gait and mobility in hopes that she can return to assisted living. Given her catatonic depression, I am even considering trialing her on some stimulants like Adderall could increase anxiety. I will discuss it with her daughter first as this is likely to work in the short term and the Remeron increase is going to take weeks. Pelvic and sacral x-rays did not show a fracture MKA: 09/20/2018 15:58:25 MODL: 09/20/2018 16:32:21 /[id number] MARBIN
[2018-09-20] MEDS: MIRTAZAPINE 7.5 MG PO SCH (20:32)
[2018-09-21] MEDS: HYDROMORPHONE 2 MG PO PRN ×5 (03:59→22:47)
[2018-09-21] MEDS: METOPROLOL 100 MG PO SCH ×2 (08:08→20:17)
[2018-09-21] MEDS: PREDNISOLONE ACETATE 1% EYERT SCH ×4 (08:09→20:18)
[2018-09-21] MEDS: PRESERVISION PO SCH (08:09)
[2018-09-21] MEDS: Polyethylene Glycol 3350 Powder 17 GM Packet PO SCH ×2 (08:09→20:19)
[2018-09-21] MEDS: AMLODIPINE PO SCH (10:37)
[2018-09-21] MEDS: MIRTAZAPINE 7.5 MG PO SCH (20:18)
[2018-09-22] MEDS: PRESERVISION PO SCH (07:48)
[2018-09-22] MEDS: AMLODIPINE PO SCH (07:49)
[2018-09-22] MEDS: METOPROLOL 100 MG PO SCH ×2 (07:49→21:23)
[2018-09-22] MEDS: Polyethylene Glycol 3350 Powder 17 GM Packet PO SCH ×2 (07:49→21:49)
[2018-09-22] MEDS: HYDROMORPHONE 2 MG PO PRN (07:50)
[2018-09-22] MEDS: PREDNISOLONE ACETATE 1% EYERT SCH ×4 (07:51→21:23)
[2018-09-22] MEDS: METHYLPHENIDATE 5 MG PO SCH (11:30)
--- NOTE | 2018-09-22 17:54 | PN ---
Progress Note for LEO PERSAUD Date: 09/22/2018 Room #: VM.214 SUBJECTIVE: Dictation #1 on an 88-year-old on swing bed for increased assistance with ADLs due to worsening moods and ambition and mobility over the past several weeks. The patient has been getting up more and working with therapy, but she tells me her pain has been quite severe in that right leg. She took increased doses of Dilaudid yesterday, a total of 14 mg, this morning she got 2 mg. Her family felt she was quite sleepy, so we decreased her to only 2 mg at a time. She has been tried on things like Neurontin in the past and Cymbalta, but could not tolerate them. The pain is now shooting into the right leg, down to the knee. She has not had any falls. She has had pelvis x-rays, sacral x-rays, and lumbar x-rays, and no new fractures. She was treated for compression fractures with vertebroplasty L3 and L4 on September 03 and that sort of when she started getting worse. She is on Remeron for mood, we have increased it to 15 mg. She is agreeable to try medication called Ritalin to try to stimulate her moods. She is eating actually 100% of her meals today, before that was 75% at best, and then 25% to 50%. OBJECTIVE: Vital Signs: On exam, her temperature is 98.2, pulse 74, blood pressure 152/70, respiratory rate 16, O2 of 94% on room air. She does use oxygen at night. General: She is in no acute distress. Heart: Regularly irregular. Lungs: Lung sounds are clear to auscultation bilaterally without crackles or wheezes. Abdomen: Positive bowel sounds. Soft, nontender. Extremities: Warm and dry. No edema. Mental Status: She is alert. She is oriented to place, but her moods are still depressed. LABORATORY DATA: Her blood sugar checked on 18 September was good, it is 98 and 138. ASSESSMENT AND PLAN: 1. Essential hypertension with elevated blood pressures. We just increased the amlodipine on Thursday. We will continue to monitor, it is at 7.5. 2. 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 We will start her on 5 mg of Ritalin today. 3. Osteoporosis with multiple previous compression fractures. She is not on any treatments. I would allow for current fracture healing. We have discussed and tried multiple things in the past. 4. Right leg pain, possibly radicular. We have consulted the Pain Clinic, but they will not be available for several weeks. We will see how current treatments go and maybe even consider something like Lyrica for her. 5. Chronic continuous opioid use. We will try to decrease her back to 2 mg of Dilaudid no more than 12 mg per day. 6. Coronary artery disease with previous stenting. 7. Chronic obstructive pulmonary disease with mild hypoxia using oxygen at night. 8. Paroxysmal atrial fibrillation. She is on anticoagulation. 9. Chronic kidney disease stage 2. The plan at this point, the patient will continue on swing bed cares. We did institute some Ritalin for her depression. It could increase anxiety. As of now, she has not used any Xanax. We will see how she does over the next few days. We will get her working with therapies. Also considerations would be for the palliative care for further support. MAG: 09/22/2018 17:05:58 MODL: 09/22/2018 17:49:38 /[id number]
[2018-09-22] MEDS: MIRTAZAPINE 7.5 MG PO SCH (21:24)
[2018-09-23] MEDS: METHYLPHENIDATE 5 MG PO SCH (07:43)
[2018-09-23] MEDS: PRESERVISION PO SCH (07:44)
[2018-09-23] MEDS: AMLODIPINE PO SCH (07:44)
[2018-09-23] MEDS: METOPROLOL 100 MG PO SCH ×2 (07:45→21:49)
[2018-09-23] MEDS: Polyethylene Glycol 3350 Powder 17 GM Packet PO SCH ×2 (07:45→20:11)
[2018-09-23] MEDS: PREDNISOLONE ACETATE 1% EYERT SCH ×4 (07:45→21:52)
[2018-09-23] MEDS: MIRTAZAPINE 7.5 MG PO SCH (21:48)
[2018-09-24 07:27] LABS: CHLORIDE,CL 98 mmol/L (98-107); SODIUM,NA 134 mmol/L (136-145)
[2018-09-24 07:32] LABS: ANION GAP 11.1 mmol/L (10-20)
[2018-09-24] MEDS: PRESERVISION PO SCH (07:41)
[2018-09-24] MEDS: AMLODIPINE PO SCH (07:41)
[2018-09-24] MEDS: METOPROLOL 100 MG PO SCH ×2 (07:41→19:30)
[2018-09-24] MEDS: PREDNISOLONE ACETATE 1% EYERT SCH ×4 (07:42→19:31)
[2018-09-24] MEDS: METHYLPHENIDATE 5 MG PO SCH (07:42)
[2018-09-24] MEDS: Polyethylene Glycol 3350 Powder 17 GM Packet PO SCH ×2 (07:42→19:30)
[2018-09-24] MEDS: MIRTAZAPINE 7.5 MG PO SCH (19:31)
[2018-09-24] MEDS: HYDROMORPHONE 2 MG PO PRN (19:32)
[2018-09-24] MEDS ORDERED: HYDROmorphone 2 MG Tab PO PRN (20:00)
--- NOTE | 2018-09-24 21:17 | PN ---
Progress Note for LEO PERSAUD Date: 09/24/2018 Room #: VM.214 SUBJECTIVE: This is an 88-year-old seen today for followup on swing bed rounds. The patient states she is ready to go home. I asked her where she is at, she says I do not believe it, but they tell me I am in the hospital. She does not really remember the events over the last few days. She has been in the hospital a week. She has not had any burning with urination. She did get a laxative, so she is on the commode. Urine was clean. No infection on admission. She had lab work this morning that was mostly normal. Sodium mildly low at 134. She has no headache. She continues to have the back and leg pain. We held off on starting Neurontin due to concern for confusion, but did start the Adderall 5 mg daily 3 days ago. Yesterday, she was a little shaky, but did get only 4 hydromorphone instead of 7 the day before. She asked me to take 2 at bedtime; however, she tried to get them at 5 p.m., because she goes to bed at 6, so she only got 1 and did not ask for more. Otherwise, her breathing has been good. No cough. No fevers. Yesterday, she was working much better with therapy. She was walking better, just using standby assist. OBJECTIVE: Vital Signs: Her temperature is 98.8, pulse 79, blood pressure 135/67, respiratory rate 24, O2 91 on 2 L. General: She was in no distress this morning, actually just more motivated to get up and go than she has been in a week. Heart: Regularly irregular Lungs: Sounds clear to auscultation. Extremities: Warm and dry. No edema. Mental Status: She is alert. She knew who I was after talking with her, but due to her poor vision, you have to be pretty close. She thought the day was Thursday. LABORATORY DATA: Lab work showed white count 6.1, hemoglobin 13.8, platelets 206. Again, sodium 134, potassium 4.1, chloride 98, bicarb 29, BUN 16, creatinine 0.7, glucose 104, calcium 9.1. ASSESSMENT: 1. Catatonic, severe depression, seems to be having a little response to the Adderall, but it might be causing more confusion. We will go ahead and hold tomorrow's dose. 2. Essential hypertension. Blood pressure is controlled. 3. Failure to thrive. She has been doing better. She was eating up to 100% of meals one day, back down to about 20% today. 4. Chronic back pain with history of compression fractures, now with some radicular pain. She has been referred to the Pain Clinic. We are going to continue to try to limit the Dilaudid to just 2-mg doses, but will allow for 4 mg at bedtime. 5. Osteoporosis. 6. Coronary artery disease with previous stenting. 7. Chronic obstructive pulmonary disease, stable. She does use oxygen at night. 8. Paroxysmal atrial fibrillation. She is on anticoagulation. 9. Chronic kidney disease stage 2, stable. PLAN: At this point, will order a UA for the patient today. We will see if she can do well enough with therapy to go home, although she would need 24-hour family supervision. Her son did come by. He is thinking that maybe she needs to go to the [facility]. It sounds like the nurse thought the daughter might try to take her home. At any rate, we will keep her here for the weekend and rule out any UTI. Do supportive cares. Hold that Adderall. Ultimately, probably will be increasing that Remeron to 30 mg daily for moods and sleep. MAG: 09/24/2018 20:43:17 MODL: 09/24/2018 21:11:05 /[id number]
[2018-09-25] MEDS: Polyethylene Glycol 3350 Powder 17 GM Packet PO SCH ×2 (07:49→19:18)
[2018-09-25] MEDS: AMLODIPINE PO SCH (07:50)
[2018-09-25] MEDS: METOPROLOL 100 MG PO SCH ×2 (07:50→19:20)
[2018-09-25] MEDS: PRESERVISION PO SCH (07:50)
[2018-09-25] MEDS: PREDNISOLONE ACETATE 1% EYERT SCH ×4 (07:51→19:18)
[2018-09-25] MEDS ORDERED: QUEtiapine 25 MG Tab PO PRN (09:18)
--- NOTE | 2018-09-25 10:49 | PN ---
Progress Note for LEO PERSAUD Date: 09/25/2018 Room #: VM.214 SUBJECTIVE: This is an 88-year-old, on swing bed. She had a bad night last night. She was up all night. She states she was really bothered by hallucinations like seeing people. She had been started on a new medication, Ritalin 5 mg daily 3 days ago for catatonic depression. Symptoms with confusion really started yesterday. The medication has been discontinued. She has also been receiving her Dilaudid for pain, but at decreasing doses as it was felt that, that would lead to sedation, but she did get 4 doses yesterday, so I do not think she is withdrawing from the pain pills. Otherwise, she has had sensitivity to medications in the past, especially Neurontin, which we did not start despite her pain going into the right leg. She tells me now her pain is all up and down her back and in both hips, one side is not necessarily worse than the other. She denies any coughing. She has had no fever. White count was normal yesterday, but she does feel a little bit short of breath. She is not having any chest pain. OBJECTIVE: Vital Signs: Her temperature is 97.8, pulse 74, blood pressure 137/90, respiratory rate 20, O2 92% on 2 L. General: She is in no acute distress. Heart: Regular rate and rhythm today. Lungs: Lung sounds are decreased over that right side, but no crackles. No wheezes. Left lung clear. Abdomen: Nondistended, nontender. Extremities: Warm and dry. No edema. Mental Status: She is alert. She is aware she is at [facility]. She recognizes me as her doctor. ASSESSMENT AND PLAN: 1. Catatonic depression, severe. We gave her some Adderall, but it actually has caused more confusion, that was stopped. She will continue on the Remeron for now. She seems a little bit more motivated. We even talked about possibly transitioning to the [facility] for further therapies and she was not opposed to this. 2. Essential hypertension. We will continue her blood pressure medications. Blood pressures have actually been better lately. 3. Failure to thrive. She has had some poor oral intake. We will continue to encourage diet. She had been up to 100% one day earlier in the week. 4. Chronic pain due to history of compression fracture. She just had some acute ones fixed in August. I think she is recovering from that now and would benefit from more therapies. We still have her on the Dilaudid but only 2 mg dose, it is not 4. We will see how she does. 5. Osteoporosis. 6. Coronary artery disease with previous stenting. 7. Chronic obstructive pulmonary disease, stable. She uses oxygen at night. 8. Paroxysmal atrial fibrillation. She is on anticoagulation. 9. Chronic kidney disease stage 2. PLAN: At this point, due to the patient's fluctuating levels of confusion, I believe she has delirium. We will check a chest x-ray to rule out any pneumonia. We will institute some Seroquel low dose 6.25 if needed for hallucinations. She was agreeable to trying this if they got worse. Otherwise, we will just do supportive cares and continue with therapies. Push fluids and encouraged p.o. intake. MKA: 09/25/2018 10:09:17 MODL: 09/25/2018 10:42:52 /[id number]
--- NOTE | 2018-09-25 12:25 | CR ---
[id number] RAD/RAD Chest PA or AP 1V EXAM: FRONTAL CHEST INDICATION: Confusion. COMPARISON: September 16, 2018. DISCUSSION: Hyperinflation suggests underlying chronic obstructive pulmonary disease. Mild elevation of the left hemidiaphragm and left base atelectasis or scarring have not changed. No definite infiltrates. Normal heart size. Multiple prior vertebroplasties. IMPRESSION: 1. No acute findings. Renny Do MD 09/25/18 [id number] Thank you for allowing us to participate in the care of your patient.
[2018-09-25] MEDS: MIRTAZAPINE 7.5 MG PO SCH (19:20)
[2018-09-25] MEDS: QUEtiapine 25 MG Tab PO SCH (19:21)
[2018-09-25] MEDS: HYDROMORPHONE 2 MG PO PRN (19:22)
[2018-09-26] MEDS: AMLODIPINE PO SCH (07:51)
[2018-09-26] MEDS: Polyethylene Glycol 3350 Powder 17 GM Packet PO SCH ×2 (07:51→19:28)
[2018-09-26] MEDS: PRESERVISION PO SCH (07:52)
[2018-09-26] MEDS: PREDNISOLONE ACETATE 1% EYERT SCH ×4 (07:53→19:26)
[2018-09-26] MEDS: METOPROLOL 100 MG PO SCH ×2 (08:07→19:27)
[2018-09-26 10:40] LABS: ANION GAP 11.7 mmol/L (10-20)
--- NOTE | 2018-09-26 11:30 | PN ---
Progress Note for LEO PERSAUD Date: 09/26/2018 Room #: VM.214 SUBJECTIVE: This is an 88-year-old, now day #3, with delirium, on swing bed. The patient is able to remember something but did not even recognize her daughter this morning. She does have some vision impairment. She is answering questions pretty clearly with me. She feels like she slept better last night. She denies that she had any hallucinations. She did get the scheduled Seroquel. She does have a history of stroke but is on Eliquis. She has not had any chest pain, but does have a history of coronary artery disease. Daughter is wondering if she potentially could have a stroke or something to cause this, but it did start after she was tried on Ritalin for her catatonic depression. She is now up walking in the garcia down to meals, doing much better with that. She has not required any Xanax. Her pain in the back has been also better. Seems to be worse when she has been laying in bed for a while. She did get 3 doses of the hydromorphone yesterday or 6 mg total. PHYSICAL EXAMINATION: Vital Signs: Her temperature 98.1, pulse 67, blood pressure 146/70, respiratory rate 18, and O2 saturation 94% on room air. General: She is in no acute distress. She is resting comfortably in bed. Heart: Regularly irregular. Lung: Her lung sounds are clear to auscultation bilaterally without crackles or wheezes. Extremities: Warm and dry. She had no edema. Mental Status: She is orientated that is her daughter here with her today. ASSESSMENT: 1. Catatonic depression, severe, seems to have gotten delirium from the Ritalin, so we have discontinued that. 2. Essential hypertension. Blood pressure is mildly elevated. We will continue to monitor and continue home meds. 3. Delirium. I will repeat lab work today. Chest x-ray and UA have ruled out infection. We will do a head CT to rule out stroke. We will also check a troponin and repeat her TSH which was mildly elevated at 5.36 on admission. She has a known history of hypothyroidism. 4. Chronic pain due to history of compression fractures with recent increasing of her Dilaudid due to that. We have weaned her back now to 3 per day. She seems to be doing okay on that. 5. Osteoporosis. 6. Coronary artery disease with previous stenting. 7. Chronic obstructive pulmonary disease, stable. She does use oxygen at night. One consideration would be doing some ABGs for hypercapnia, but given her current respiratory status, I do not feel this is contributing to her delirium. 8. Atrial fibrillation, on anticoagulation. 9. Chronic kidney disease, stage 2. 10. 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 We will continue the Seroquel at bedtime to help her with rest and delirium. Daughter feels like she may try to take her home to see how she does surrounded by family over the next few days. Ultimately, she may need to return to assisted living with 24-hour caregiver support or they are considering the residential. Other family are coming up later today to further discuss with the daughter, Roberto, who is present during my exam. MKA: 09/26/2018 10:33:38 MODL: 09/26/2018 11:25:47 /[id number]
--- NOTE | 2018-09-26 11:46 | CT ---
[id number] CT/CT Head WO IV EXAM: NONCONTRAST HEAD CT INDICATION: DELIRIUM COMPARISON: March 14, 2018. DISCUSSION: Stable moderate generalized atrophy. Stable moderate chronic small vessel ischemic changes including a left cerebellar and scattered basal ganglia and cerebral white matter lacunar infarcts. No mass effect or midline shift. No acute hemorrhage or extra-axial fluid collection. No acute territorial infarct is identified. Right hemorrhage post surgical intervention. The left orbit and the paranasal sinuses are unremarkable. Surgical changes are stable in the left mastoid. IMPRESSION: 1. No acute findings. 2. Stable moderate atrophy and chronic small vessel ischemic changes. Renny Do MD 09/26/18 1145 Thank you for allowing us to participate in the care of your patient.
[2018-09-26] MEDS: MIRTAZAPINE 7.5 MG PO SCH (19:28)
[2018-09-26] MEDS: QUEtiapine 25 MG Tab PO SCH (19:29)
[2018-09-26] MEDS: HYDROMORPHONE 2 MG PO PRN (19:30)
[2018-09-27] MEDS: METOPROLOL 100 MG PO SCH ×2 (08:57→23:06)
[2018-09-27] MEDS: AMLODIPINE PO SCH (08:57)
[2018-09-27] MEDS: PRESERVISION PO SCH (08:57)
[2018-09-27] MEDS: Polyethylene Glycol 3350 Powder 17 GM Packet PO SCH ×3 (08:58→20:05)
[2018-09-27] MEDS: PREDNISOLONE ACETATE 1% EYERT SCH ×4 (08:59→20:06)
[2018-09-27] MEDS: MIRTAZAPINE 7.5 MG PO SCH (20:03)
[2018-09-27] MEDS: QUEtiapine 25 MG Tab PO SCH (20:05)
[2018-09-27] MEDS: HYDROMORPHONE 2 MG PO PRN (20:06)
[2018-09-28 06:47] VITALS: BP 131/69
[2018-09-28] MEDS ORDERED: Polyethylene Glycol 3350 Powder 17 GM Packet PO SCH (08:00)
[2018-09-28] MEDS: AMLODIPINE PO SCH (08:40)
[2018-09-28] MEDS: PREDNISOLONE ACETATE 1% EYERT SCH ×2 (08:41→11:45)
[2018-09-28] MEDS: PRESERVISION PO SCH (08:41)
[2018-09-28] MEDS: METOPROLOL 100 MG PO SCH (09:10)
--- NOTE | 2018-09-28 16:05 | DISCH ---
PRIMARY DISCHARGE DIAGNOSES: 1. 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 2. Delirium, which was caused by institution of Ritalin to help improve moods, which is clearing by the time of discharge. No sign of infection, stroke, or heart attack during her stay. Electrolytes were all stable. 3. Essential hypertension. Mildly elevated blood pressures, but improved with Norvasc increased to 7.5 daily. 4. Hypothyroidism, on treatment. 5. Chronic pain due to previous compression fractures in the spine, which have been treated with vertebroplasty. 6. Osteoporosis. 7. Coronary artery disease with previous stenting. 8. Chronic obstructive pulmonary disease, stable on oxygen at night. 9. Atrial fibrillation, on anticoagulation with history of stroke. 10.Chronic kidney disease. 11.Vision loss of the right eye. REASON FOR ADMISSION: On the date of admission, this 88-year-old female was at assisted living, but she was becoming weaker. She was not eating. It was felt that she might be dehydrated, although her renal function has been okay. In fact, creatinine right now is 1.0 at the time of discharge. She did receive some IV fluids and overall her x-rays did not show any acute fractures of the back and pelvic area, and decision was made to go on self-pay swing bed and continue to work with therapies as she did not have a qualifying Medicare stay. The patient was working with therapies, at times she would be up she would be walking farther doing quite well, and then the next day she would not be able to participate as much, somewhat dependent on the patient's mood and how she felt if she felt like she was sleeping okay at night. We did institute some Seroquel after she had the hallucinations from the Adderall and she did seem to sleep better. She remembers them and states that something I probably will not forget. Otherwise, the patient did seem to be needing more of her pain pills early on, was having some radicular pain in her leg. We did consult the Pain Clinic, however, they were not available for another couple weeks. We held off on starting anything like Neurontin due to her confusion and the pain did improve and she was able to be weaned down to only like 2 pain pills a day, mainly needing them at nighttime. She otherwise had Tylenol ordered, but was not taking it. The patient did have some increased doses of Toprol during her stay; however, her heart rates were going down as low as 59, so she will go back to just 50 mg on discharge. Discussion was had with her daughter and also her son. They are looking into potential for residential placement, but at this point they would just like to take her home and see how she does. OBJECTIVE: Vital Signs: At the time of discharge, her temperature was 98, her pulse was 72, her blood pressure 131/69, her respiratory rate 16, and her O2 was 88 on room air. General: She was in no acute distress. Heart: Irregularly irregular. Lungs: Lung sounds today were clear to auscultation bilaterally without crackles or wheezes. Abdomen: Nondistended, nontender. Extremities: Warm and dry. No edema. Mental Status: She is alert. She is orientated x3. DISCHARGE PLANS AND INSTRUCTIONS: She is going to follow up with Dr. Oliveros in the clinic on October 12. We did place refills for her new medications on file, which would specifically include the Seroquel 12.5 mg at bedtime, Remeron increased up to 15 mg. She will be on no Ativan at discharge. She never required any of those type of medications during her stay and then new prescription for the hydromorphone to read every 8 hours. She will need no lab work at her followup visit. She will have home health on discharge as well and her [id number] encounter occurred with me on the date of 09/28/2018. The primary need for home health is teaching and monitoring of medications. She is unable to do this without help, also for monitoring of infections and respiratory concerns given her hypoxia, but she does use oxygen at night. Due to her cognitive impairment and severe depression with acute delirium, she is unable to leave her home without the assist of another person. I will periodically review this plan of care. She also would need to have physical therapy help with her gait immobility and weakness related to the recent event which is compression fractures in the spine. MKA: 09/28/2018 12:49:58 MODL: 09/28/2018 15:55:38 /[id number]
== END 2018-09-28 13:10 | disposition home health service (06) | DRG 885 ==
LOC: VM.MS 10:30
PROVIDERS: ADMIT Internal Medicine; ATTEND Internal Medicine
DX: F33.2 Major depressive disorder, recurrent severe without psychotic features (principal); F05 Delirium due to known physiological condition; I12.9 Hypertensive chronic kidney disease with stage 1 through stage 4 chronic kidney disease, or unspecified chronic kidney disease; E03.9 Hypothyroidism, unspecified; H54.7 Unspecified visual loss; M81.0 Age-related osteoporosis without current pathological fracture; G89.29 Other chronic pain; R62.7 Adult failure to thrive; J44.9 Chronic obstructive pulmonary disease, unspecified; E86.0 Dehydration; Z79.899 Other long term (current) drug therapy; M54.9 Dorsalgia, unspecified; M79.604 Pain in right leg; I25.10 Atherosclerotic heart disease of native coronary artery without angina pectoris; N18.2 Chronic kidney disease, stage 2 (mild); I48.0 Paroxysmal atrial fibrillation; F06.1 Catatonic disorder due to known physiological condition; Z95.5 Presence of coronary angioplasty implant and graft; Z68.20 Body mass index [BMI] 20.0-20.9, adult
CPT/HCPCS: 36415; 70450; 71045; 72170; 72220; 80048; 81000; 82962; 84443; 84484; 85025; 94760; 97110-GP; 97116-GP; 97161-GP; 97530-GP; A9270-GY